=== PATIENT | female | born 1975 | race Caucasian/White ===

== ENCOUNTER 2020-08-13 09:34 | Outpatient (REF) | payer MEDICARE, MEDICAID, SELFPAY ==
[2020-08-13 14:34] LABS: Influenza A PCR NEGATIVE (Negative); Influenza B PCR NEGATIVE (Negative); Resp Syncy Virus RNA Qual PCR NEGATIVE (Negative); SARS COV2 PCR INHOUSE NEGATIVE (Negative)
== END 2020-08-13 09:35 | disposition home or self-care (01) ==
LOC: HO.LAB 09:34
PROVIDERS: Visit Provider Nurse Practitioner Family
DX: J40 Bronchitis, not specified as acute or chronic (principal)
CPT/HCPCS: 0241U

== ENCOUNTER → 2020-09-14 08:42 | Outpatient (BNVA) | payer MEDICARE, MEDICAID, SELFPAY | PROVIDERS: PCP Nurse Practitioner Family; Visit Provider Physician Assistant | DX: E66.9 Obesity, unspecified (principal); K91.2 Postsurgical malabsorption, not elsewhere classified; Z90.3 Acquired absence of stomach [part of]; Z98.84 Bariatric surgery status | CPT/HCPCS: Q3014 ==

== ENCOUNTER → 2020-09-19 14:06 | Outpatient (BNVA) | payer MEDICARE, MEDICAID, SELFPAY | PROVIDERS: PCP Nurse Practitioner Family; Visit Provider Physician Assistant | DX: Z76.89 Persons encountering health services in other specified circumstances (principal) ==

== ENCOUNTER 2020-10-02 09:40 | Outpatient (REF) | payer MEDICARE, MEDICAID, SELFPAY ==
[2020-10-02 10:41] LABS: MANUAL DIFF FLAG NO
[2020-10-02 10:46] LABS: Basophils Percent Auto 0.3 % (0-2); Eosinophils Absolute Auto 0.1 X10*3/uL (0.0-0.4); Eosinophils Percent Auto 1.9 % (0-4); Hematocrit 41.1 % (37-47); Hemoglobin 12.4 g/dl (12.0-16.0); Imm Gran Abs Auto 0.03 X10*3/uL (0.00-0.03); Imm Gran Pct Auto 0.4 % (0.0-0.4); Lymphocytes Percent Auto 26.5 % (20-40); Mean Corpuscular HGB Conc 30.2 g/dl (31.0-35.0); Mean Corpuscular Hemoglobin 24.8 pg (27.0-33.0); Mean Corpuscular Volume 82.2 fL (80-98); Mean Platelet Volume 10.4 fL (9.4-12.3); Monocytes Absolute Auto 0.4 X10*3/uL (0.1-1.2); Neutrophils Absolute Auto 4.9 X10*3/uL (2.0-8.3); Neutrophils Percent Auto 65.9 % (45-73); Platelet Count 329 X10*3/uL (160-400); Red Cell Distribution Width 15.9 % (11.0-16.0); White Blood Count 7.4 X10*3/uL (4.8-10.8)
[2020-10-02 11:13] LABS: Alanine Aminotransferase 13 U/L (0-31); Albumin Level 4.1 g/dL (3.5-5.0); Alkaline Phosphatase 113 U/L (39-117); Anion Gap 13 (12-20); Aspartate Amino Transferase 14 U/L (5-31); Bilirubin Total 0.2 mg/dL (0.0-1.0); Blood Urea Nitrogen 12 mg/dL (9-16); C Reactive Protein 0.36 mg/dL (< or = 0.50); Calcium 8.7 mg/dL (8.4-10.2); Carbon Dioxide 25 mmol/L (22-29); Chloride 109 mmol/L (96-108); Cholesterol 281 mg/dL; Estimated Glomerular Filt Rate > 60; Glucose Fasting 88 mg/dL (60-99); HDL Cholesterol 76 mg/dL; Iron 40 mcg/dL (30-160); LDL Cholesterol Calculated 179 mg/dl; Percent Iron Saturation 7 % (15-50); Potassium 4.5 mmol/l (3.3-5.1); Sodium 142 mmol/L (135-145); Total Iron Binding Capacity 534 mcg/dL (228-428); Total Protein 7.1 g/dL (6.5-8.0); Triglycerides 130 mg/dL; Unsaturated Iron Binding 494 ug/dL
[2020-10-02 11:16] LABS: Estimated Average Glucose 94 mg/dL; Hemoglobin A1c % 4.9 %
[2020-10-02 11:33] LABS: Vitamin D 25-OH Total 25.4 ng/mL (>30)
[2020-10-02 11:39] LABS: Ferritin 3 ng/mL (10-250); TSH reflex Free T4 0.72 mIU/mL (0.32-4.0)
[2020-10-02 11:46] LABS: Folate 16.1 ng/mL (> or = 4.0); Vitamin B12 551 pg/mL (200-900)
[2020-10-03 17:28] LABS: Calcium (PTHI) 9.2 mg/dL (8.6-10.2); PTHI 47 pg/mL (14-64)
[2020-10-04 21:58] LABS: Insulin Level Total 11.3 uIU/mL
[2020-10-05 06:56] LABS: Zinc 93 mcg/dL (60-130)
[2020-10-06 21:12] LABS: Vitamin A 50 mcg/dL (38-98)
[2020-10-07 10:23] LABS: Vitamin B1 11 nmol/L (8-30)
== END 2020-10-02 09:41 | disposition home or self-care (01) ==
LOC: HO.XRAY 09:40
PROVIDERS: PCP Nurse Practitioner Family; Visit Provider Physician Assistant
DX: E66.9 Obesity, unspecified (principal); K91.2 Postsurgical malabsorption, not elsewhere classified; Z90.3 Acquired absence of stomach [part of]; K21.9 Gastro-esophageal reflux disease without esophagitis; Z98.84 Bariatric surgery status
CPT/HCPCS: 36415; 80053; 80061; 82306; 82607; 82728; 82746; 83036; 83525; 83540; 83970; 84425; 84443; 84590; 84630; 85025; 86140

== ENCOUNTER 2020-10-25 10:03 | Outpatient (REF) | payer MEDICARE, MEDICAID, SELFPAY ==
--- NOTE | 2020-10-25 10:05 | FL_ITS ---
EXAMINATION: XR FLUOROSCOPY UPPER GI CLINICAL INFORMATION: Bariatric surgery status COMPARISON: None TECHNIQUE: Fluoroscopic assessment of the upper GI tract was performed in various upright and supine/prone obliquities utilizing thin density barium contrast material. FINDINGS: Normal oral bolus control and transfer. Normal posterior tilt of the epiglottis with elevation of the hyoid. The esophagus was normal in course, caliber, and contour. There was normal distensibility with no fixed segment of narrowing. No focal mucosal abnormality was identified. No significant esophageal dysmotility was observed. Contrast passed freely across the gastroesophageal junction into the stomach. No significant hiatal hernia. Status post gastric sleeve. Surgical clips along the greater curvature of the stomach. There was expected distensibility of the stomach with no focal abnormality identified. There was prompt gastric emptying into the duodenum which demonstrated a normal appearance. Mild gastroesophageal reflux was observed. FLUOROSCOPY TIME: 1.7 minutes DOSE AREA PRODUCT: 24.976 Gy-cm2 (pompa-centimeter squared) FL/FL upper GI series IMPRESSION: Status post sleeve gastrectomy with typical appearance. No abnormal distensibility. No hernia. Mild gastroesophageal reflux noted.
== END 2020-10-25 10:04 | disposition home or self-care (01) ==
LOC: HO.XRAY 10:03
PROVIDERS: Visit Provider Physician Assistant
DX: K21.9 Gastro-esophageal reflux disease without esophagitis (principal); Z98.84 Bariatric surgery status
CPT/HCPCS: 74240

== ENCOUNTER → 2020-10-26 08:36 | Outpatient (BNVA) | payer MEDICARE, MEDICAID, SELFPAY | PROVIDERS: PCP Nurse Practitioner Family; Visit Provider Physician Assistant ==

== ENCOUNTER → 2020-10-30 07:42 | Outpatient (BNVA) | payer MEDICARE, MEDICAID, SELFPAY | PROVIDERS: PCP Nurse Practitioner Family; Visit Provider Physician Assistant | DX: E66.9 Obesity, unspecified (principal); K91.2 Postsurgical malabsorption, not elsewhere classified; Z90.3 Acquired absence of stomach [part of]; Z98.84 Bariatric surgery status | CPT/HCPCS: Q3014 ==

== ENCOUNTER → 2020-11-20 15:22 | Outpatient (BNVA) | payer MEDICARE, MEDICAID, SELFPAY | PROVIDERS: PCP Nurse Practitioner Family; Visit Provider Dietitian, Registered ==

== ENCOUNTER 2021-04-25 06:49 | Outpatient (REF) | payer MEDICARE, MEDICAID, SELFPAY ==
--- NOTE | 2021-04-25 | EEG_ITS ---
This is a 16-channel EEG with an EKG lead. The patient is reported awake and drowsy during the tracing. Background EEG rhythm is 12 to 14 hertz, 5 to 30 microvolt posteriorly, lower amplitude fast anteriorly. Photic stimulation does not produce any driving. Hyperventilation is not performed. Cardiac lead does not reveal any significant abnormality. The patient transitioned in and out of drowsiness with no significant abnormality. No definite sharp wave spikes or paroxysmal tendency noted. IMPRESSION: No significant abnormality noted on this EEG. If seizure disorder is strongly suspected, ambulatory EEG for 2 to 3 days is recommended. MD JOHANN Cabral/RADAMES / [id number]
== END 2021-04-25 06:50 | disposition home or self-care (01) ==
LOC: HO.NEURO 06:49
PROVIDERS: PCP Nurse Practitioner Family; Visit Provider Nurse Practitioner Family
DX: R55 Syncope and collapse (principal)
CPT/HCPCS: 95819

== ENCOUNTER 2021-06-24 11:13 | Outpatient (REF) | payer MEDICARE, MEDICAID, SELFPAY ==
--- NOTE | ~2021-06-24 | MM_ITS ---
EXAMINATION: MM SCREENING DIGITAL BREAST TOMOSYNTHESIS, BILATERAL CLINICAL INFORMATION: Screening. Asymptomatic. Benign left ultrasound guided biopsy 09/12/2011 (fibroadenoma). The lifetime risk of breast cancer based on the Tyrer-Cuzick Model is 13%. COMPARISON: Mammography: 05/03/2018, 06/16/2016 TECHNIQUE: Digital breast tomosynthesis is performed in both the craniocaudal and mediolateral oblique views along with computer-aided detection (CAD). Synthesized 2D images are generated from the tomosynthesis. FINDINGS: The breasts are heterogeneously dense, which may obscure small masses (ACR BI-RADS breast composition Category c). There are no significant masses, abnormal calcifications, or other abnormalities. Parenchymal pattern is similar to prior studies. There is a biopsy clip marker mid 2:30 o'clock left breast with stable adjacent circumscribed nodule consistent with a fibroadenoma on prior sampling. There are stable benign-appearing dermal calcifications anterior 6:30 o'clock position left breast. MM/MM tomosynthesis screening BI IMPRESSION: No mammographic evidence of malignancy. ASSESSMENT: BI-RADS 2: Benign RECOMMENDATION: Routine annual mammography screening. This patient's information was entered into a reminder system with a target due date for their next mammogram.
== END 2021-06-24 11:14 | disposition home or self-care (01) ==
LOC: HO.MAMMO 11:13
PROVIDERS: Visit Provider Nurse Practitioner Family
DX: Z12.31 Encounter for screening mammogram for malignant neoplasm of breast (principal)
CPT/HCPCS: 77063; 77067

== ENCOUNTER → 2021-10-28 08:03 | Outpatient (BNVA) | payer MEDICARE, MEDICAID, SELFPAY | PROVIDERS: PCP Nurse Practitioner Family; Visit Provider Physician Assistant Surgical | DX: E66.9 Obesity, unspecified (principal); K91.2 Postsurgical malabsorption, not elsewhere classified; Z90.3 Acquired absence of stomach [part of]; Z98.84 Bariatric surgery status; Z68.35 Body mass index [BMI] 35.0-35.9, adult | CPT/HCPCS: Q3014 ==

== ENCOUNTER → 2022-01-28 15:52 | Outpatient (BNVA) | payer MEDICARE, MEDICAID, SELFPAY | PROVIDERS: PCP Nurse Practitioner Family; Referring Provider Nurse Practitioner Family; Visit Provider Physician Assistant Surgical | DX: E66.9 Obesity, unspecified (principal); Z68.35 Body mass index [BMI] 35.0-35.9, adult | CPT/HCPCS: 99212 ==

== ENCOUNTER 2022-01-30 10:57 | Outpatient (REF) | payer MEDICARE, MEDICAID, SELFPAY ==
--- NOTE | ~2022-01-30 | XR_ITS ---
EXAMINATION: XR CHEST CLINICAL INFORMATION: QuantiFERON gold positive COMPARISON: None TECHNIQUE: 2 views of the chest were obtained. FINDINGS: No significant abnormality is noted involving the heart, lungs, mediastinum, bony thorax or soft tissues. XR/XR chest 2V IMPRESSION: Unremarkable chest examination.
[2022-01-30 12:02] LABS: MANUAL DIFF FLAG NO
[2022-01-30 12:25] LABS: Basophils Percent Auto 0.4 % (0-2); Eosinophils Absolute Auto 0.1 X10*3/uL (0.0-0.4); Eosinophils Percent Auto 1.2 % (0-4); Hematocrit 40.4 % (37.0-47.0); Hemoglobin 12.6 g/dl (12.0-16.0); Imm Gran Abs Auto 0.03 X10*3/uL (0.00-0.03); Imm Gran Pct Auto 0.4 % (0.0-0.4); Lymphocytes Percent Auto 27.4 % (20-40); Mean Corpuscular HGB Conc 31.2 g/dl (31.0-35.0); Mean Corpuscular Hemoglobin 25.7 pg (27.0-33.0); Mean Corpuscular Volume 82.3 fL (80.0-98.0); Mean Platelet Volume 9.7 fL (9.4-12.3); Monocytes Absolute Auto 0.4 X10*3/uL (0.1-1.2); Monocytes Percent Auto 5.7 % (2-11); Neutrophils Absolute Auto 4.7 x10*3/uL (2.0-8.3); Neutrophils Percent Auto 64.9 % (45-73); Platelet Count 333 X10*3/uL (160-400); Red Blood Count 4.91 X10*6/uL (4.20-5.50); Red Cell Distribution Width 13.4 % (11.0-16.0); White Blood Count 7.2 X10*3/uL (4.8-10.8)
[2022-01-30 12:38] LABS: Estimated Average Glucose 105 mg/dL; Hemoglobin A1c % 5.3 %
[2022-01-30 12:51] LABS: HDL Cholesterol 63 mg/dL; Iron 56 mcg/dL (30-160); Percent Iron Saturation 11 % (15-50); Total Iron Binding Capacity 492 mcg/dL (228-428); Unsaturated Iron Binding 436 ug/dL
[2022-01-30 12:54] LABS: Alanine Aminotransferase 19 U/L (0-31); Alkaline Phosphatase 126 U/L (39-117); Anion Gap 12 (12-20); Aspartate Amino Transferase 23 U/L (5-31); Bilirubin Total 0.4 mg/dL (0.0-1.0); Blood Urea Nitrogen 9 mg/dL (9-16); Calcium 9.6 mg/dL (8.4-10.2); Carbon Dioxide 28 mmol/L (22-29); Chloride 104 mmol/L (96-108); Estimated Glomerular Filt Rate > 60; Glucose Random 90 mg/dL (60-115); Potassium 4.4 mmol/L (3.3-5.1); Sodium 140 mmol/L (135-145); Total Protein 6.9 g/dL (6.5-8.0)
[2022-01-30 13:13] LABS: Ferritin 12 ng/mL (10-250); Vitamin D 25-OH Total 29.3 ng/mL (>30)
[2022-01-30 13:28] LABS: Folate 14.6 ng/mL (> or = 4.0); Vitamin B12 479 pg/mL (200-900)
[2022-01-30 14:59] LABS: C Reactive Protein 0.46 mg/dL (< or = 0.50); Cholesterol 236 mg/dL; LDL Cholesterol Calculated 147 mg/dl; Triglycerides 134 mg/dL
[2022-02-04 06:27] LABS: Zinc 79 mcg/dL (60-130)
[2022-02-04 16:37] LABS: Vitamin B1 9 nmol/L (8-30)
[2022-02-04 19:01] LABS: Vitamin A 36 mcg/dL (38-98)
== END 2022-01-30 10:58 | disposition home or self-care (01) ==
LOC: HO.LAB 10:57
PROVIDERS: Absent Provider Nurse Practitioner Primary Care; PCP Nurse Practitioner Family; Referring Provider Registered Nurse; Visit Provider Physician Assistant Surgical
DX: R76.12 Nonspecific reaction to cell mediated immunity measurement of gamma interferon antigen response without active tuberculosis (principal); K91.2 Postsurgical malabsorption, not elsewhere classified; E66.9 Obesity, unspecified; Z90.3 Acquired absence of stomach [part of]; Z98.84 Bariatric surgery status
CPT/HCPCS: 36415; 71046; 80053; 80061; 82306; 82607; 82728; 82746; 83036; 83540; 84425; 84443; 84590; 84630; 85025; 86140

== ENCOUNTER 2022-06-26 10:17 | Outpatient (REF) | payer MEDICARE, MEDICAID, SELFPAY ==
--- NOTE | ~2022-06-26 | MM_ITS ---
EXAMINATION: MM SCREENING DIGITAL BREAST TOMOSYNTHESIS, BILATERAL CLINICAL INFORMATION: Screening. Asymptomatic. Benign left biopsy 2010, fibroadenoma. The lifetime risk of breast cancer based on the Tyrer-Cuzick Model is 12%. COMPARISON: Mammography: 06/24/2021, 05/03/2018 TECHNIQUE: Digital breast tomosynthesis is performed in both the craniocaudal and mediolateral oblique views along with computer-aided detection (CAD). Synthesized 2D images are generated from the tomosynthesis. FINDINGS: The breasts are heterogeneously dense, which may obscure small masses (ACR BI-RADS breast composition Category c). There are no significant masses, abnormal calcifications, or other abnormalities. Parenchymal pattern is similar to prior studies. There is no developing density or architectural abnormality. There is biopsy clip marker mid upper outer left breast with smaller adjacent nodule consistent with the fibroadenoma. The axilla and skin contours are unremarkable. No significant changes. MM/MM tomosynthesis screening BI IMPRESSION: No mammographic evidence of malignancy. ASSESSMENT: BI-RADS 2: Benign RECOMMENDATION: Routine annual mammography screening. This patient's information was entered into a reminder system with a target due date for their next mammogram.
== END 2022-06-26 10:18 | disposition home or self-care (01) ==
LOC: HO.MAMMO 10:17
PROVIDERS: PCP Registered Nurse; Visit Provider Registered Nurse
DX: Z12.31 Encounter for screening mammogram for malignant neoplasm of breast (principal)
CPT/HCPCS: 77063; 77067

== ENCOUNTER → 2022-08-06 10:20 | Outpatient (BNVA) | payer MEDICARE, MEDICAID, SELFPAY | PROVIDERS: PCP Registered Nurse; Visit Provider Physician Assistant Surgical | DX: E66.9 Obesity, unspecified (principal); K21.9 Gastro-esophageal reflux disease without esophagitis; Z98.84 Bariatric surgery status; Z68.36 Body mass index [BMI] 36.0-36.9, adult | CPT/HCPCS: 99212 ==

== ENCOUNTER 2022-10-06 10:01 | Outpatient (REF) | payer MEDICARE, MEDICAID, SELFPAY | END 2022-10-06 10:02 | disposition home or self-care (01) | LOC: HO.XRAY 10:01 | PROVIDERS: PCP Registered Nurse; Visit Provider Physician Assistant Surgical | DX: Z13.89 Encounter for screening for other disorder (principal) ==

== ENCOUNTER 2022-11-11 09:45 | Outpatient (REF) | payer MEDICARE, MEDICAID, SELFPAY ==
--- NOTE | ~2022-11-11 | FL_ITS ---
EXAMINATION: XR FLUOROSCOPY UPPER GI WITH AIR CLINICAL INFORMATION: Bariatric surgery status COMPARISON: Previous exam September 2020 TECHNIQUE: Upper GI was performed using thin and thick barium and effervescent granules. FINDINGS: Esophageal motility is normal. There is significant gastroesophageal reflux. No hernia. There are surgical john seen adjacent to the stomach following gastric sleeve procedure. No mass, ulcer, stricture or fold thickening is seen. FLUOROSCOPY TIME: 0.6 minutes DOSE AREA PRODUCT: 4.4 pompa per centimeter squared. 28 saved fluoroscopic images. FL/FL upper GI w air IMPRESSION: Significant gastroesophageal reflux. Postoperative change from gastric sleeve procedure.
== END 2022-11-11 09:46 | disposition home or self-care (01) ==
LOC: HO.XRAY 09:45
PROVIDERS: PCP Registered Nurse; Visit Provider Physician Assistant Surgical
DX: K21.9 Gastro-esophageal reflux disease without esophagitis (principal); Z98.84 Bariatric surgery status
CPT/HCPCS: 74246

== ENCOUNTER → 2022-12-10 14:27 | Outpatient (BNVA) | payer MEDICARE, MEDICAID, SELFPAY | PROVIDERS: PCP Registered Nurse; Visit Provider Physician Assistant Surgical | DX: K21.9 Gastro-esophageal reflux disease without esophagitis (principal); E66.9 Obesity, unspecified; Z68.39 Body mass index [BMI] 39.0-39.9, adult; Z90.3 Acquired absence of stomach [part of]; Z90.49 Acquired absence of other specified parts of digestive tract | CPT/HCPCS: 99212 ==

== ENCOUNTER → 2022-12-25 13:21 | Outpatient (BNVA) | payer MEDICARE, MEDICAID, SELFPAY | PROVIDERS: PCP Family Medicine; Visit Provider Physician Assistant ==

== ENCOUNTER 2022-12-26 06:32 | Day surgery (SDC) | payer MEDICARE, MEDICAID, SELFPAY ==
--- NOTE | 2022-12-19 19:22 | MHC.SHP ---
Pre-Procedural Eval Section A Date of Service: 12/19/22 The patient is an INPATIENT: No The History & Physical has been completed within 30 days and I have reviewed it.: Yes Section B Chief Complaint: reflux disease Relevant Family History (Specify if Yes): No Relevant Social History: None Present Medications: None Medical History: No relevant PMH History of Previous Operations: Relevant previous surgery/procedure and date(s) (sleeve gastrectomy) Allergies: Allergies Allergy/AdvReac Type Severity Reaction Status Date / Time No Known Allergies Allergy Verified 12/10/22 14:32 [No Known Allergies*] Pt states no food/medication Allergy Unknown Anxiety Uncoded 01/28/22 15:58 a Review of Systems Sugical H&P ROS: Negative: Constitution, Cardiovascular, Respiratory, Neurological, Psychiatric, Hem-Onc, Allergic/Immunologic, Gastrointestinal, Genitourinary, Musculoskeletal, Integumentary, Endocrine and Eyes/Ears/Nose/Throat Exam Surgical H&P Exam: Normal: HEENT, Normal: Heart, Normal: Lungs, Normal: Extremities, Normal: Abdomen, Normal: Skin and Normal: Neurological Plan Diagnosis/Plan: Unchanged (EGD to assess for esphagitis. Inability to stop PPIs for H pylori test. Risks for perforation and bleeding were discussed with patient. She is in agreement with the plan) I have reviewed the history and physical and performed a pertinent physical examination on my patient. No changes have occurred unless specified. Time Spent With Patient Time: Total time managing care of this patient today ____ minutes.
[2022-12-23 09:13] VITALS: BMI 39.9
--- NOTE | 2022-12-25 12:27 | P.CONAN_ITS ---
Documented by User: Berenice Peters NP 12/25/22 12:28 HPI - Anesthesia Eval Consult details Narrative: 47yo F for Upper Endoscopy s/p sleeve 2017 [facility] Active Problems Active Problems: All Active Problems (Updated 12/23/22 @ 09:09 by Matilda Adams RN) Pharyngitis (Acute) Bronchitis (Acute) Sore throat (Acute) GERD (gastroesophageal reflux disease) (Acute) S/P laparoscopic sleeve gastrectomy (Acute) Intestinal malabsorption following gastrectomy (Acute) Obesity (BMI 30-39.9) (Acute) Past Medical History Medical History (Updated 12/23/22 @ 09:09 by Matilda Adams RN) Elevated cholesterol GERD (gastroesophageal reflux disease) Hx of uterine prolapse Intestinal malabsorption following gastrectomy Obesity (BMI 30-39.9) Rectocele Family History Family History Father Heart disease Hypertension Mother Hypertension Heart disease Diabetes mellitus Heart attack Brother Diabetes mellitus Acute depression Anxiety Son Diabetes mellitus Hypertension Son No problems noted. Daughter No problems noted. Sister No problems noted. Surgical History Surgical History History of abdominoplasty History of bladder suspension procedure History of cholecystectomy History of sleeve gastrectomy Hx of abdominoplasty Hx of appendectomy Hx of section Hx of colonoscopy Hx of decompression of ulnar nerve Hx of tubal ligation S/P laparoscopic sleeve gastrectomy Social History Social History Alcohol intake: never Patient Tobacco Use Status: Former Tobacco user Use of substances other than those prescribed or required for medical reasons: No Are you DNR?: No Advance Directives: No Advance Directives Information Provided: Yes Recently lost weight without trying: No Nutrition Risks: No Nutritional Risk Meds Allergies Allergy/AdvReac Type Severity Reaction Status Date / Time No Known Allergies Allergy Verified 12/10/22 14:32 [No Known Allergies*] Home Medications Medication Instructions Recorded Confirmed Last Taken Type albuterol sulfate 90 mcg/actuation 2 puff PO Q4H PRN Wheezing 08/13/20 12/23/22 Unknown History aerosol inhaler clonazepam 0.5 mg tablet 0.5 mg PO BID PRN Anxiety 08/13/20 12/23/22 Unknown History cyclobenzaprine 5 mg tablet 5 mg PO TID PRN muscle pain 08/13/20 12/23/22 Unknown History ibuprofen 800 mg tablet 800 mg PO DAILY PRN pain 08/13/20 12/23/22 Unknown History loratadine 10 mg tablet 10 mg PO DAILY PRN Allergy Symptoms 08/13/20 12/23/22 Unknown History naratriptan 2.5 mg tablet 2.5 mg PO DAILY PRN migraine 08/13/20 12/23/22 Unknown History ondansetron 4 mg disintegrating 4 mg PO Q6H PRN Nausea 08/13/20 12/23/22 Unknown History tablet gabapentin 100 mg capsule 100 mg PO TID 01/28/22 12/23/22 Unknown History ascorbate calcium (vitamin C) 500 500 mg PO DAILY 08/06/22 12/23/22 Unknown History mg tablet atorvastatin 10 mg tablet 40 mg PO DAILY 08/06/22 12/23/22 Unknown History Exam Exam Date and Time: December 25, 2022 1227 Height,Weight and Vital Signs: Height 5 ft 0.5 in Weight 94.256 kg Assessment and Plan Assessment Anesthesia Assessment: Chart Reviewed Documented by User: Agnieszka Quezada MD 12/26/22 08:06 [facility] Past Medical History Medical History (Updated 12/23/22 @ 09:09 by Matilda Adams RN) Elevated cholesterol GERD (gastroesophageal reflux disease) Hx of uterine prolapse Intestinal malabsorption following gastrectomy Obesity (BMI 30-39.9) Rectocele Family History Family History Father Heart disease Hypertension Mother Hypertension Heart disease Diabetes mellitus Heart attack Brother Diabetes mellitus Acute depression Anxiety Son Diabetes mellitus Hypertension Son No problems noted. Daughter No problems noted. Sister No problems noted. Family history of problems with anesthesia: No Surgical History Surgical History History of abdominoplasty History of bladder suspension procedure History of cholecystectomy History of sleeve gastrectomy Hx of abdominoplasty Hx of appendectomy Hx of section Hx of colonoscopy Hx of decompression of ulnar nerve Hx of tubal ligation S/P laparoscopic sleeve gastrectomy History of Problems with Anesthesia: Yes (ponv) Social History Social History Alcohol intake: never Patient Tobacco Use Status: Former Tobacco user Use of substances other than those prescribed or required for medical reasons: No Are you DNR?: No Advance Directives: No Advance Directives Information Provided: Yes Recently lost weight without trying: No Nutrition Risks: No Nutritional Risk Meds Allergies Allergy/AdvReac Type Severity Reaction Status Date / Time No Known Allergies Allergy Verified 12/10/22 14:32 [No Known Allergies*] Home Medications Medication Instructions Recorded Confirmed Last Taken Type albuterol sulfate 90 mcg/actuation 2 puff PO Q4H PRN Wheezing 08/13/20 12/23/22 Unknown History aerosol inhaler clonazepam 0.5 mg tablet 0.5 mg PO BID PRN Anxiety 08/13/20 12/23/22 Unknown History cyclobenzaprine 5 mg tablet 5 mg PO TID PRN muscle pain 08/13/20 12/23/22 Unknown History ibuprofen 800 mg tablet 800 mg PO DAILY PRN pain 08/13/20 12/23/22 Unknown History loratadine 10 mg tablet 10 mg PO DAILY PRN Allergy Symptoms 08/13/20 12/23/22 Unknown History naratriptan 2.5 mg tablet 2.5 mg PO DAILY PRN migraine 08/13/20 12/23/22 Unknown History ondansetron 4 mg disintegrating 4 mg PO Q6H PRN Nausea 08/13/20 12/23/22 Unknown History tablet gabapentin 100 mg capsule 100 mg PO TID 01/28/22 12/23/22 Unknown History ascorbate calcium (vitamin C) 500 500 mg PO DAILY 08/06/22 12/23/22 Unknown History mg tablet atorvastatin 10 mg tablet 40 mg PO DAILY 08/06/22 12/23/22 Unknown History Exam Airway Mallampati Class: II TM Dist: >3cm Neck ROM: Full Heart: rr Lungs: cta Assessment and Plan Final Anesthetic Review Family History of Problems with Anesthesia: No History of Problems with Anesthesia: Yes (ponv) NPO: Yes ASA Class: III (obesity) Final Preanesthetic Review: No Changes in Pt Med Stat, Meds/Allgs Chart Reviewed and Consent Obtained/Reviewed Patient Risk: Low Procedure Risk: Low Anesthetic Plan Anesthetic Plan: MAC: Disposition: Standard PACU
[2022-12-25 13:37] LABS: COVID-19 Test Negative (Negative); IDNOW Serial# 55D5AD1C
[2022-12-26 06:38] VITALS: BMI 40.0
[2022-12-26 06:43] VITALS: BP 115/78; PULSE 83; RESP 16; TEMP 36.3; O2SAT 97
[2022-12-26] MEDS: Lactated Ringers 1,000 ML 80 ML IVCONT (07:01)
--- NOTE | 2022-12-26 07:34 | PM.OP ---
Brief Operative Note Date of Service: 12/26/22 Pre-op diagnosis: GERD, s/p sleeve gastrectomy Post-op diagnosis: same Procedure: PROCEDURE DATE: 12/26/2022 PREOPERATIVE DIAGNOSIS: GERD, s/p sleeve gastrectomy POSTOPERATIVE DIAGNOSIS: ?Same as above PROCEDURE: [id number] with biopsies Surgeon: ?Silver Perez M.D.. Ph.D. Oracle Database Administrator: None ? Anesthesia: IV sedation Estimated blood loss: ?Minimal FINDINGS AND PROCEDURE: ? OPERATIVE INDICATIONS: ?The patient is a 47 year old female known to me who underwent a laparoscopic sleeve gastrectomy by me. The patient had some weight loss originally but has gained all the weight back and additional even above to where she started with.? The patient was doing very well but has recently been complaining of GERD. Based on this information I recommended an upper endoscopy to evaluate the patient's symptoms. Risks and complications of the surgery were discussed with the patient in advance particularly the possibility of perforation or bleeding that may require surgical intervention. The patient understood the risks and was in agreement with the plan. ? PROCEDURE: After informed consent was obtained by the patient, the patient was ?transferred to the Operating Room and was placed in the supine position.? After successful induction of IV sedation, a mouth block was inserted and the patient was placed in the left lateral decubitus position. An upper endoscopy was performed next, the oropharynx and esophagus appeared within the normal limits. There was no hiatal hernia. The z-line was smooth. Two biopsies were obtained from the distal esohagus 2-3 cm proximal to the GE junction and two additional biopsies from the GE junction. The sleeve was entered and it appeared to be of normal size. There was mild gastritis at distal antrum. There was no stricture or ulcer. Biopsies were obtained from the proximal sleeve as well as the distal antrum. No significant bleeding was noted from any of the biopsy sites. The scope was then advanced into the duodenum which appeared to be normal as well. At that point the duodenum ?and the sleeve were decompressed and the scope was withdrawn from the patient's mouth. The patient extubated and was transferred in stable condition to the Recovery Room for further care. I was present and performed all steps of the procedure. There were no residents to assist with this case. Silver Perez M.D., Ph.D. Surgeon: Tyler Perez MD Anesthesia: MAC Was an Oracle Database Administrator used for this Procedure?: No Estimated blood loss (mL): 0 IV fluids (mL): 400 Urine output (mL): 0 (No Joseph to record output) Pathology: other (1) antrum x1, 2) proximal sleeve/gastric fundus x1, 3) EGJ x2, 4) distal esophagus x2) Condition: stable Disposition: PACU
[2022-12-26 08:02] VITALS: BP 113/75; PULSE 99; RESP 16; TEMP 36.2; O2SAT 96
[2022-12-26 08:18] VITALS: BP 110/73; PULSE 82; RESP 16; O2SAT 97
[2022-12-26 08:31] VITALS: BP 110/73; PULSE 83; RESP 16; TEMP 36.3; O2SAT 97
== END 2022-12-26 09:02 | disposition home or self-care (01) ==
PROVIDERS: Physician Assistant Surgical; PCP Family Medicine; Visit Provider Surgery
PROC: 0DJ08ZZ Inspection of Upper Intestinal Tract, Via Natural or Artificial Opening Endoscopic (ICD-10-PCS; CPT 43235; principal; 2022-12-26 07:30)
DX: K21.9 Gastro-esophageal reflux disease without esophagitis (principal); Z98.84 Bariatric surgery status; Z90.3 Acquired absence of stomach [part of]; K29.60 Other gastritis without bleeding; E66.9 Obesity, unspecified; Z68.39 Body mass index [BMI] 39.0-39.9, adult; Z79.899 Other long term (current) drug therapy; Z79.1 Long term (current) use of non-steroidal anti-inflammatories (NSAID); Z90.49 Acquired absence of other specified parts of digestive tract; Z20.822 Contact with and (suspected) exposure to COVID-19
CPT/HCPCS: 43239; 87635; 88305; 88342

== ENCOUNTER → 2022-12-29 09:48 | Outpatient (BNVA) | payer MEDICARE, MEDICAID, SELFPAY | PROVIDERS: PCP Registered Nurse; Visit Provider Physician Assistant Surgical | DX: K21.9 Gastro-esophageal reflux disease without esophagitis (principal); E78.00 Pure hypercholesterolemia, unspecified; K90.49 Malabsorption due to intolerance, not elsewhere classified; Z90.3 Acquired absence of stomach [part of] | CPT/HCPCS: 99212 ==

== ENCOUNTER 2022-12-31 11:26 | Emergency (ER) | payer MEDICARE, MEDICAID, SELFPAY ==
--- NOTE | ~2022-12-31 | CT_ITS ---
CT TEMPORAL BONE WITHOUT CONTRAST INDICATION: Right mastoid tenderness. COMPARISON: None available. TECHNIQUE: Multidetector CT acquisitions of the temporal bones obtained without IV contrast. This CT examination was performed using dose optimization techniques as appropriate, variously including the following: *Automated exposure control *Adjustment of mA and/or kV according to patient size (this includes techniques or standardized protocols for targeted exams where dose is matched to indication/reason for exam; i.e. extremities or head) *Use of iterative reconstruction technique FINDINGS: Soft tissue thickening of the right cartilaginous external auditory canal with mild adjacent cellulitis, findings most suggestive of otitis externa. There is no drainable fluid collection to suggest abscess. Mild nonspecific partial opacification of the right epitympanum anteriorly as well as mild soft tissue within Prussak's space without associated bone erosion. The remainder of the right middle ear cavity is clear and the right mastoid air cells are clear. Left mastoid air cells and left middle ear cavity are clear. The inner ear structures are unremarkable. The paranasal sinuses remain well-aerated. No suspicious intraosseous lesions. The TMJs are unremarkable. CT/CT mastoid IMPRESSION: Soft tissue thickening of the right cartilaginous external auditory canal with mild adjacent cellulitis, findings most suggestive of otitis externa. There is no drainable fluid collection to suggest abscess. Mild nonspecific partial opacification of the right epitympanum anteriorly as well as mild soft tissue within Prussak's space without associated bone erosion. The remainder of the right middle ear cavity is clear and the right mastoid air cells are clear.
[2022-12-31 11:46] VITALS: BP 135/83; PULSE 94; RESP 18; TEMP 37; O2SAT 98; BMI 40.0
--- NOTE | 2022-12-31 11:49 | ED_ITS ---
HPI - Ear Problem General Chief complaint: Ear Problems <MALCOLM Mauricio - Last Filed: 12/31/22 11:51> Stated complaint: R outer ear infection? <MALCOLM Mauricio - Last Filed: 12/31/22 11:51> Time Seen by Provider: 12/31/22 13:20 <MALCOLM Mauricio - Last Filed: 12/31/22 11:51> Source: patient <MALCOLM Vences Last Filed: 12/31/22 15:02> Mode of arrival: ambulatory <MALCOLM Vences Last Filed: 12/31/22 15:02> Limitations: no limitations <MALCOLM Vences Last Filed: 12/31/22 15:02> History of Present Illness HPI Narrative: Patient is a 47 year old assigned female at presenting to the emergency department today with right outer ear pain. Patient states that she had itching in her ear which she tried to fix with hydrogen peroxide, olive oil, and itching, then she began having ear pain on Thursday (12/27/22) and was pre scribed ear drops and Augmentin by her PCP but is not having any improvement in symptoms. Patient denies any dizziness, lightheadedness, abdominal pain, nausea, vomiting, fever, chills, blurry vision, double vision, loss of vision, chest pain, difficulty breathing, shortness of breath, back pain, night sweats, pain with urination, increased urinary frequency, increased urinary urgency, blood in her urine or stool, syncope or a near syncopal episode, recent trauma or falls, bowel incontinence, bladder incontinence, bowel retention, bladder retention, or any other complaints at this time. <MALCOLM Vences Last Filed: 12/31/22 15:02> MD Complaint: ear pain <MALCOLM Vences Last Filed: 12/31/22 15:02> Location: right ear <MALCOLM Vences Last Filed: 12/31/22 15:02> Duration: constant <MALCOLM Vences Last Filed: 12/31/22 15:02> Relieving factors: nothing <MALCOLM Vences Last Filed: 12/31/22 15:02> Exacerbating factors: nothing <MLACOLM Vences Last Filed: 12/31/22 15:02> Discharge from ear: no <MALCOLM Vences - Last Filed: 12/31/22 15:02> Treatment prior to arrival: eardrops and other (augmentin) <MALCOLM Vences - Last Filed: 02/17 15:02> Related Data Home medications: Home Medications Medication Instructions Recorded Confirmed albuterol sulfate 90 mcg/actuation 2 puff PO Q4H PRN Wheezing 08/13/20 12/29/22 aerosol inhaler clonazepam 0.5 mg tablet 0.5 mg PO BID PRN Anxiety 08/13/20 12/29/22 cyclobenzaprine 5 mg tablet 5 mg PO TID PRN muscle pain 08/13/20 12/29/22 ibuprofen 800 mg tablet 800 mg PO DAILY PRN pain 08/13/20 12/29/22 loratadine 10 mg tablet 10 mg PO DAILY PRN Allergy Symptoms 08/13/20 12/29/22 naratriptan 2.5 mg tablet 2.5 mg PO DAILY PRN migraine 08/13/20 12/29/22 ondansetron 4 mg disintegrating 4 mg PO Q6H PRN Nausea 08/13/20 12/29/22 tablet gabapentin 100 mg capsule 100 mg PO TID 01/28/22 12/29/22 ascorbate calcium (vitamin C) 500 500 mg PO DAILY 08/06/22 12/29/22 mg tablet atorvastatin 10 mg tablet 40 mg PO DAILY 08/06/22 12/29/22 Previous Rx's Medication Instructions Recorded vitamin A palmitate 3,000 mcg 10,000 unit PO DAILY #30 caps 02/05/22 (10,000 unit) capsule pantoprazole 40 mg tablet,delayed 40 mg PO BID #180 tabs 12/10/22 release sucralfate 100 mg/mL oral 10 ml PO BID #414 mL 12/29/22 suspension cephalexin 500 mg capsule 500 mg PO Q6H 7 days #28 caps 12/31/22 doxycycline hyclate 100 mg tablet 100 mg PO BID 7 days #14 tabs 12/31/22 naproxen 500 mg tablet 500 mg PO BID 7 days #14 tabs 12/31/22 <MALCOLM Mauricio - Last Filed: 12/31/22 11:51> Allergies/adverse reactions: Allergies Allergy/AdvReac Type Severity Reaction Status Date / Time No Known Allergies Allergy Verified 12/10/22 14:32 [No Known Allergies*] <MALCOLM Mauricio - Last Filed: 12/31/22 11:51> Review of Systems Constitutional: Constitutional: Reports no additional constitutional complaints, Denies chills, Denies fever(s) and Denies night sweats <MALCOLM Vences - Last Filed: 12/31/22 15:02> Eyes: Eyes: Reports no additional eye complaints, Denies blurry vision, Denies change in vision, Denies diplopia, Denies eye discharge, Denies loss of vision and Denies eye pain <MALCOLM Vences - Last Filed: 12/31/22 15:02> ENT: Denies dizziness <MALCOLM Vences - Last Filed: 12/31/22 15:02> Comments: right ear pain <MALCOLM Vences - Last Filed: 12/31/22 15:02> Cardiovascular: Cardiovascular: Reports no additional cardiovascular complaints, Denies chest pain, Denies lightheadedness, Denies Loss of Consciousness and Denies dyspnea <MALCOLM Vences - Last Filed: 12/31/22 15:02> Respiratory: Respiratory: Reports no additional respiratory complaints and Denies dyspnea <MALCOLM Vences - Last Filed: 12/31/22 15:02> Gastrointestinal: Gastrointestinal: Reports no additional gastrointestinal complaints, Denies abdominal pain, Denies melena, Denies hematochezia, Denies change in bowel habits and Denies change in stool character <MALCOLM Vences Last Filed: 12/31/22 15:02> Genitourinary: Genitourinary: Denies hematuria, Denies urinary frequency, Denies dysuria, Denies urinary incontinence, Denies urinary hesitancy and Denies urinary urgency <MALCOLM Vences Last Filed: 12/31/22 15:02> Musculoskeletal: Musculoskeletal: Reports no additional musculoskeletal complaints, Denies numbness and Denies tingling <MALCOLM Vences Last Filed: 12/31/22 15:02> Neurologic: Denies dizziness, Denies loss of vision, Denies numbness and Denies tingling <MALCOLM Vences - Last Filed: 12/31/22 15:02> Psychiatric: Psychiatric: Reports no additional psychiatric complaints <MALCOLM Vences - Last Filed: 12/31/22 15:02> Endocrine: Endocrine: Reports no additional endocrine complaints <MALCOLM Vences - Last Filed: 12/31/22 15:02> Hematologic/Lymphatic: Hematologic/Lymphatic: Reports no additional hematologic/lymphatic complaints <MALCOLM Vences - Last Filed: 12/31/22 15:02> Allergic/Immunologic: Allergic/Immunologic: Reports no additional allergic/immunologic complaints <MALCOLM Vences - Last Filed: 12/31/22 15:02> PMFSH Past Medical History Attestation statement: The following information was validated with the patient. <MALCOLM Vences - Last Filed: 12/31/22 15:02> Source: old records reviewed and nursing notes reviewed <MALCOLM Vences - Last Filed: 12/31/22 15:02> Medical History: Medical History Elevated cholesterol GERD (gastroesophageal reflux disease) Hx of uterine prolapse Intestinal malabsorption following gastrectomy Obesity (BMI 30-39.9) Rectocele <MALCOLM Mauricio - Last Filed: 12/31/22 11:51> Surgical History: Surgical History History of abdominoplasty History of bladder suspension procedure History of cholecystectomy History of sleeve gastrectomy Hx of abdominoplasty Hx of appendectomy Hx of section Hx of colonoscopy Hx of decompression of ulnar nerve Hx of tubal ligation S/P laparoscopic sleeve gastrectomy <MALCOLM Mauricio - Last Filed: 12/31/22 11:51> Family History Family History: Family History Father Heart disease Hypertension Mother Hypertension Heart disease Diabetes mellitus Heart attack Brother Diabetes mellitus Acute depression Anxiety Son Diabetes mellitus Hypertension Son No problems noted. Daughter No problems noted. Sister No problems noted. <MALCOLM Mauricio - Last Filed: 12/31/22 11:51> Social History Social History: Social History Alcohol intake: never Patient Tobacco Use Status: Former Tobacco user Advance Directives: No Advance Directives Information Provided: No <MALCOLM Mauricio - Last Filed: 12/31/22 11:51> Physical Exam Vital Signs: Vital Signs: Last Vital Signs Temp 98.6 F 12/31/22 11:46 Pulse 94 12/31/22 11:46 Resp 18 12/31/22 11:46 BP 135/83 12/31/22 11:46 Pulse Ox 98 12/31/22 11:46 O2 Del Method Room Air 12/31/22 11:46 BMI result Body Mass Index 40.0 <MALCOLM Mauricio - Last Filed: 12/31/22 11:51> Vital Signs: Last Vital Signs Temp 98.6 F 12/31/22 11:46 Pulse 94 12/31/22 11:46 Resp 18 12/31/22 11:46 BP 135/83 12/31/22 11:46 Pulse Ox 98 12/31/22 11:46 O2 Del Method Room Air 12/31/22 11:46 BMI result Body Mass Index 40.0 <MALCOLM Vences - Last Filed: 12/31/22 15:02> Const: General: cooperative, no acute distress, alert and awake <MALCOLM Vences - Last Filed: 12/31/22 15:02> Nutritional Appearance: well nourished <MALCOLM Vences - Last Filed: 12/31/22 15:02> Orientation/consciousness: patient oriented x3 <MALCOLM Vences - Last Filed: 12/31/22 15:02> Limitations: no limitations <MALCOLM Vences - Last Filed: 12/31/22 15:02> HEENT: Head: Yes normal to inspection and Yes atraumatic <MALCOLM Vences Last Filed: 12/31/22 15:02> Ears: hearing grossly normal bilaterally and other (right auricle swollen, erythematous, warm) <MALCOLM Vences Last Filed: 12/31/22 15:02> General nose exam: Normal external nose present, no nasal discharge noted and no epistaxis <MALCOLM Vences - Last Filed: 12/31/22 15:02> Face and sinus: Yes normal facial exam, No abrasion and No laceration <MALCOLM Vences - Last Filed: 12/31/22 15:02> Mouth: Normal oral and palatal mucosa present, no drooling and no muffled voice <Domenica Garcia HI - Last Filed: 12/31/22 15:02> Eyes: General: appearance normal, both eyes and all related structures <MALCOLM Vences - Last Filed: 12/31/22 15:02> Periorbital: periorbital findings normal <Domenica Garcia [place] - Last Filed: 12/31/22 15:02> Eyelids: Yes eyelids normal <Domenica Garcia [place] - Last Filed: 12/31/22 15:02> Conjunctivae: conjunctivae normal <Domenica Garcia [place] - Last Filed: 12/31/22 15:02> Pupils: Equal, round and reactive pupils present <MALCOLM Vences - Last Filed: 12/31/22 15:02> EOM: EOMs intact bilaterally <Domenica Garcia [place] - Last Filed: 12/31/22 15:02> Neck: Neck: Yes normal visual inspection, Yes full ROM and Yes no lymphadenopathy <MALCOLM Vences - Last Filed: 12/31/22 15:02> Chest: Chest palpation & inspection: normal inspection of the chest <MALCOLM Vences - Last Filed: 12/31/22 15:02> Resp: Effort & Inspection: normal respiratory effort and able to speak in complete sentences <MALCOLM Vences - Last Filed: 12/31/22 15:02> Auscultation: clear to auscultation bilaterally <MALCOLM Vences - Last Filed: 12/31/22 15:02> Cardio: Rate: regular rate <MALCOLM Vences - Last Filed: 12/31/22 15:02> Rhythm: regular rhythm <MALCOLM Vences - Last Filed: 12/31/22 15:02> GI: Inspection: Yes normal to inspection <MALCOLM Vences - Last Filed: 12/31/22 15:02> Neuro: General: patient oriented x3 and moves all extremities <MALCOLM Vences - Last Filed: 12/31/22 15:02> Cranial nerves: Yes Equal, round and reactive pupils present <Domenica Schwartzdonovan [place] - Last Filed: 12/31/22 15:02> Cognition (Neuro): normal cognition <Domenica Schwartzdonovan HI - Last Filed: 12/31/22 15:02> Motor exam (neuro): 5/5 motor strength present throughout <Domenica Schwartzdonovan HI - Last Filed: 12/31/22 15:02> Sensory Exam: Normal double simultaneous stimulation for sensation <Domenicanikki Schwartzdonovan [place] - Last Filed: 12/31/22 15:02> Coordination: [id number] test normal <Domenicanikki Schwartzdonovan [place] - Last Filed: 12/31/22 15:02> Extrem: General: Yes normal to inspection, Yes full ROM and Yes capillary refill normal <Domenica Schwartzdonovan [place] - Last Filed: 12/31/22 15:02> Psych: Appearance: grossly normal <Domenica MALCOLM Garcia - Last Filed: 12/31/22 15:02> Mental Status: mental status grossly normal <Domenicanikki Schwartzdonovan [place] - Last Filed: 12/31/22 15:02> Affect: normal affect <Domenica Garcia [facility] Last Filed: 12/31/22 15:02> Attitude: cooperative <Domenica Garcia [place] - Last Filed: 12/31/22 15:02> Thought process: Normal thought process present <MALCOLM Vences Last Filed: 12/31/22 15:02> Thought content: Normal thought content present <MALCOLM Vences Last Filed: 12/31/22 15:02> Insight: Good insight present (Psych) <Domenica Garcia [facility] Last Filed: 12/31/22 15:02> Course Course Course Narrative: RME - 47 y/o female presenting with worsening right ear pain for the last 5 days. She got started on augmentin and ciprodex 4 days ago and taking motrin 800 mg every 5 hours. She reports the pain is extending to the jaw and behind the ear. +tenderness to the mastoid on exam. Plan: CT mastoid, basic labs <MALCOLM Mauricio - Last Filed: 12/31/22 11:51> Medications Administered Discontinued Medications Generic Name Dose Route Start Last Admin Trade Name Freq PRN Reason Stop Dose Admin Oxycodone HCl 10 mg 12/31/22 13:41 12/31/22 14:07 Oxycodone Hcl Immed Release 5 Mg Tablet PO 12/31/22 13:42 10 mg ONCE ONE Administration <MALCOLM Mauricio - Last Filed: 12/31/22 11:51> Medications Administered Discontinued Medications Generic Name Dose Route Start Last Admin Trade Name Freq PRN Reason Stop Dose Admin Oxycodone HCl 10 mg 12/31/22 13:41 12/31/22 14:07 Oxycodone Hcl Immed Release 5 Mg Tablet PO 12/31/22 13:42 10 mg ONCE ONE Administration <MALCOLM Vences - Last Filed: 12/31/22 15:02> Medical Decision Making Medical Decision Making [facility] Narrative: Patient is a 47 year old assigned female at with history of GERD presenting to the emergency department today with right ear pain. Patient's physical exam showed an erythematous, warm, and mildly swollen right auricle but was otherwise unremarkable. Patient's blood work showed an elevated ESR and CRP. Patient's mastoid CT showed cellulitis of the right external auditory canal. I explained my physical exam findings as well as all test results to the patient. I answered all questions asked by the patient. I stressed the importance of the patient taking her medication as prescribed. I stressed the importance of the patient following up with her primary care provider and an ENT. I stressed the importance of the patient returning to the emergency department immediately if her symptoms were to worsen or if she were to develop any dizziness, shortness of breath, difficulty breathing, chest pain, blurry vision, loss of vision, nausea, vomiting, abdominal pain, fever, chills, back pain, or any other complaints. Patient verbalized agreement and understanding with this treatment plan and discharge. <MALCOLM Vences - Last Filed: 12/31/22 15:02> Differential Diagnosis Differential Diagnoses: The differential diagnosis associated with the presentation includes <MALCOLM Vences - Last Filed: 12/31/22 15:02> otitis externa, cellulitis of the ear <MALCOLM Vences - Last Filed: 12/31/22 15:02> Lab Data [facility] Lab Attestation statement: I reviewed the patient's lab results. <MALCOLM Vences - Last Filed: 12/31/22 15:02> Result Diagrams: 12/31/22 12:02 12/31/22 12:02 <MALCOLM Mauricio - Last Filed: 12/31/22 11:51> Labs: Lab Results 12/31/22 12/31/22 12/31/22 Range/Units 12:02 12:02 12:02 WBC 8.8 (4.8-10.8) X10*3/uL RBC 5.19 (4.20-5.50) X10*6/uL Hgb 13.2 (12.0-16.0) g/dl Hct 42.9 (37.0-47.0) % MCV 82.7 (80.0-98.0) fL MCH 25.4 L (27.0-33.0) pg MCHC 30.8 L (31.0-35.0) g/dl RDW 13.6 (11.0-16.0) % Plt Count 298 (160-400) X10*3/uL MPV 9.7 (9.4-12.3) fL Immature Gran % (Auto) 0.5 H (0.0-0.4) % Neut % (Auto) 65.1 (45-73) % Lymph % (Auto) 24.7 (20-40) % [place] % (Auto) 7.3 (2-11) % Eos % (Auto) 1.9 (0-4) % Baso % (Auto) 0.5 (0-2) % Lymph # (Auto) 2.2 (1.2-4.9) X10*3/uL [place] # (Auto) 0.6 (0.1-1.2) X10*3/uL Eos # (Auto) 0.2 (0.0-0.4) X10*3/uL Baso # (Auto) 0.0 (0.0-0.2) X10*3/uL Abs Immat Gran (auto) 0.04 H (0.00-0.03) X10*3/uL Absolute Neuts (auto) 5.7 (2.0-8.3) x10*3/uL Absolute Nucleated RBC 0.000 (0.0-0.012) X10*3/uL Nucleated RBC % (auto) 0.0 (0.0-0.2) /100WBC ESR 31 H (0-20) MM/HR Sodium 141 (135-145) mmol/L Potassium 4.1 (3.3-5.1) mmol/L Chloride 107 (96-108) mmol/L Carbon Dioxide 27 (22-29) mmol/L Anion Gap 11 L (12-20) BUN 11 (9-16) mg/dL Creatinine 0.63 (0.5-1.4) mg/dL Estim Creat Clear Calc 118.2 Estimated GFR > 60 Random Glucose 101 (60-115) mg/dL Calcium 9.0 D (8.4-10.2) mg/dL C-Reactive Protein 2.18 H (< or = 0.50) mg/dL <MALCOLM Mauricio - Last Filed: 12/31/22 11:51> Lab Results 12/31/22 12/31/22 12/31/22 Range/Units 12:02 12:02 12:02 WBC 8.8 (4.8-10.8) X10*3/uL RBC 5.19 (4.20-5.50) X10*6/uL Hgb 13.2 (12.0-16.0) g/dl Hct 42.9 (37.0-47.0) % MCV 82.7 (80.0-98.0) fL MCH 25.4 L (27.0-33.0) pg MCHC 30.8 L (31.0-35.0) g/dl RDW 13.6 (11.0-16.0) % Plt Count 298 (160-400) X10*3/uL MPV 9.7 (9.4-12.3) fL Immature Gran % (Auto) 0.5 H (0.0-0.4) % Neut % (Auto) 65.1 (45-73) % Lymph % (Auto) 24.7 (20-40) % [place] % (Auto) 7.3 (2-11) % Eos % (Auto) 1.9 (0-4) % Baso % (Auto) 0.5 (0-2) % Lymph # (Auto) 2.2 (1.2-4.9) X10*3/uL [place] # (Auto) 0.6 (0.1-1.2) X10*3/uL Eos # (Auto) 0.2 (0.0-0.4) X10*3/uL Baso # (Auto) 0.0 (0.0-0.2) X10*3/uL Abs Immat Gran (auto) 0.04 H (0.00-0.03) X10*3/uL Absolute Neuts (auto) 5.7 (2.0-8.3) x10*3/uL Absolute Nucleated RBC 0.000 (0.0-0.012) X10*3/uL Nucleated RBC % (auto) 0.0 (0.0-0.2) /100WBC ESR 31 H (0-20) MM/HR Sodium 141 (135-145) mmol/L Potassium 4.1 (3.3-5.1) mmol/L Chloride 107 (96-108) mmol/L Carbon Dioxide 27 (22-29) mmol/L Anion Gap 11 L (12-20) BUN 11 (9-16) mg/dL Creatinine 0.63 (0.5-1.4) mg/dL Estim Creat Clear Calc 118.2 Estimated GFR > 60 Random Glucose 101 (60-115) mg/dL Calcium 9.0 D (8.4-10.2) mg/dL C-Reactive Protein 2.18 H (< or = 0.50) mg/dL <MALCOLM Vences - Last Filed: 12/31/22 15:02> Radiology Impression Discussion of test interpretation with radiology: I have reviewed the radiologist's reading. <MALCOLM Vences - Last Filed: 12/31/22 15:02> Radiologist Impression: My interpretation is in agreement with the radiologist's impression of this imaging study. CT TEMPORAL BONE WITHOUT CONTRAST INDICATION: Right mastoid tenderness. COMPARISON: None available. TECHNIQUE: Multidetector CT acquisitions of the temporal bones obtained without IV contrast. This CT examination was performed using dose optimization techniques as appropriate, variously including the following: *Automated exposure control *Adjustment of mA and/or kV according to patient size (this includes techniques or standardized protocols for targeted exams where dose is matched to indication/reason for exam; i.e. extremities or head) *Use of iterative reconstruction technique FINDINGS: Soft tissue thickening of the right cartilaginous external auditory canal with mild adjacent cellulitis, findings most suggestive of otitis externa. There is no drainable fluid collection to suggest abscess. Mild nonspecific partial opacification of the right epitympanum anteriorly as well as mild soft tissue within Prussak's space without associated bone erosion. The remainder of the right middle ear cavity is clear and the right mastoid air cells are clear. Left mastoid air cells and left middle ear cavity are clear. The inner ear structures are unremarkable. The paranasal sinuses remain well-aerated. No suspicious intraosseous lesions. The TMJs are unremarkable. CT/CT mastoid IMPRESSION: Soft tissue thickening of the right cartilaginous external auditory canal with mild adjacent cellulitis, findings most suggestive of otitis externa. There is no drainable fluid collection to suggest abscess. Mild nonspecific partial opacification of the right epitympanum anteriorly as well as mild soft tissue within Prussak's space without associated bone erosion. The remainder of the right middle ear cavity is clear and the right mastoid air cells are clear. Dictated By: Dieudonne Stroud MD Signed By: Electronically signed by Dieudonne Stroud MD 12/31/22 1353 <MALCOLM Vences - Last Filed: 12/31/22 15:02> Discharge Plan Discharge Clinical Impression: Cellulitis, Otitis externa <MALCOLM Mauricio - Last Filed: 12/31/22 11:51> Patient Disposition: Home, Self-Care <MALCOLM Mauricio - Last Filed: 12/31/22 11:51> Instructions: Cellulitis (DC), Otitis Externa (DC) <MALCOLM Mauricio - Last Filed: 12/31/22 11:51> Additional Instructions: STOP the augmentin and instead take the Keflex and Doxycycline. Continue the drops as directed. Follow up with your primary care provider and an ENT. Return to the emergency department immediately if your symptoms worsen or if you develop any dizziness, shortness of breath, difficulty breathing, chest pain, blurry vision, loss of vision, nausea, vomiting, abdominal pain, fever, chills, back pain, or any other complaints. <MALCOLM Mauricio - Last Filed: 12/31/22 11:51> Prescriptions: New cephalexin 500 mg capsule 500 mg PO Q6H 7 Days Qty: 28 0RF doxycycline hyclate 100 mg tablet 100 mg PO BID 7 Days Qty: 14 0RF naproxen 500 mg tablet 500 mg PO BID 7 Days Qty: 14 0RF No Action vitamin A palmitate 10,000 unit capsule 10,000 unit PO DAILY Qty: 30 2RF clonazepam 0.5 mg tablet 0.5 mg PO BID PRN (Reason: Anxiety) naratriptan 2.5 mg tablet 2.5 mg PO DAILY PRN (Reason: migraine) ibuprofen 800 mg tablet 800 mg PO DAILY PRN (Reason: pain) cyclobenzaprine 5 mg tablet 5 mg PO TID PRN (Reason: muscle pain) loratadine 10 mg tablet 10 mg PO DAILY PRN (Reason: Allergy Symptoms) ondansetron 4 mg tablet,disintegrating 4 mg PO Q6H PRN (Reason: Nausea) albuterol sulfate 90 mcg/actuation HFA aerosol inhaler 2 puff PO Q4H PRN (Reason: Wheezing) atorvastatin 10 mg tablet 40 mg PO DAILY gabapentin 100 mg capsule 100 mg PO TID ascorbate calcium (vitamin C) 500 mg tablet 500 mg PO DAILY pantoprazole 40 mg tablet,delayed release (DR/EC) 40 mg PO BID Qty: 180 3RF sucralfate 100 mg/mL suspension 10 ml PO BID Qty: 414 2RF <MALCOLM Mauricio - Last Filed: 12/31/22 11:51> Referrals: Enrico Rutherford [Physician] - (Call to establish and follow up with an ENT.) Valerie Rios FNP [Primary Care Provider] - <MALCOLM Mauricio - Last Filed: 12/31/22 11:51> Stand Alone Forms: Work/School Release <MALCOLM Mauricio - Last Filed: 12/31/22 11:51> Interventions: ED Discharge Assessment Last Done: 12/31/22 14:36 <MALCOLM Mauricio - Last Filed: 12/31/22 11:51> Discharge Date/Time: 12/31/22 14:36 <MALCOLM Mauricio - Last Filed: 12/31/22 11:51> Print Language: Greenlandic <MALCOLM Mauricio - Last Filed: 12/31/22 11:51>
[2022-12-31 12:07] LABS: MANUAL DIFF FLAG NO
[2022-12-31 12:21] LABS: Basophils Percent Auto 0.5 % (0-2); Eosinophils Absolute Auto 0.2 X10*3/uL (0.0-0.4); Eosinophils Percent Auto 1.9 % (0-4); Hematocrit 42.9 % (37.0-47.0); Hemoglobin 13.2 g/dl (12.0-16.0); Imm Gran Abs Auto 0.04 X10*3/uL (0.00-0.03); Imm Gran Pct Auto 0.5 % (0.0-0.4); Lymphocytes Absolute Auto 2.2 X10*3/uL (1.2-4.9); Lymphocytes Percent Auto 24.7 % (20-40); Mean Corpuscular HGB Conc 30.8 g/dl (31.0-35.0); Mean Corpuscular Hemoglobin 25.4 pg (27.0-33.0); Mean Corpuscular Volume 82.7 fL (80.0-98.0); Mean Platelet Volume 9.7 fL (9.4-12.3); Monocytes Absolute Auto 0.6 X10*3/uL (0.1-1.2); Monocytes Percent Auto 7.3 % (2-11); Neutrophils Absolute Auto 5.7 x10*3/uL (2.0-8.3); Neutrophils Percent Auto 65.1 % (45-73); Platelet Count 298 X10*3/uL (160-400); Red Blood Count 5.19 X10*6/uL (4.20-5.50); Red Cell Distribution Width 13.6 % (11.0-16.0); White Blood Count 8.8 X10*3/uL (4.8-10.8)
[2022-12-31 12:26] LABS: Anion Gap 11 (12-20); Blood Urea Nitrogen 11 mg/dL (9-16); C Reactive Protein 2.18 mg/dL (< or = 0.50); Carbon Dioxide 27 mmol/L (22-29); Chloride 107 mmol/L (96-108); Creatinine Clr Calc Pharmacy 118.2; Estimated Glomerular Filt Rate > 60; Glucose Random 101 mg/dL (60-115); Potassium 4.1 mmol/L (3.3-5.1); Sodium 141 mmol/L (135-145)
[2022-12-31 13:07] LABS: Erythrocyte Sedimentation Rate 31 MM/HR (0-20)
[2022-12-31] MEDS: oxyCODONE HCl Immed Release 5 MG TABLET 10 MG PO (14:07)
== END 2022-12-31 14:36 | disposition home or self-care (01) ==
PROVIDERS: Physician Assistant; Emergency Provider Emergency Medicine Emergency Medical Services; PCP Registered Nurse
DX: H60.11 Cellulitis of right external ear (principal); H60.91 Unspecified otitis externa, right ear; H92.01 Otalgia, right ear; E78.5 Hyperlipidemia, unspecified; Z79.899 Other long term (current) drug therapy; Z79.02 Long term (current) use of antithrombotics/antiplatelets
CPT/HCPCS: 36415; 70481; 80048; 85025; 85652; 86140; 99283; 99284

== ENCOUNTER 2023-03-16 09:08 | Outpatient (REF) | payer MEDICARE, MEDICAID, SELFPAY ==
[2023-03-16 10:02] LABS: MANUAL DIFF FLAG NO
[2023-03-16 10:45] LABS: Basophils Percent Auto 0.4 % (0-2); Eosinophils Absolute Auto 0.3 X10*3/uL (0.0-0.4); Eosinophils Percent Auto 4.2 % (0-4); Hematocrit 46.1 % (37.0-47.0); Hemoglobin 14.4 g/dl (12.0-16.0); Imm Gran Abs Auto 0.02 X10*3/uL (0.00-0.03); Imm Gran Pct Auto 0.3 % (0.0-0.4); Lymphocytes Absolute Auto 2.3 X10*3/uL (1.2-4.9); Lymphocytes Percent Auto 32.9 % (20-40); Mean Corpuscular HGB Conc 31.2 g/dl (31.0-35.0); Mean Corpuscular Hemoglobin 25.8 pg (27.0-33.0); Mean Corpuscular Volume 82.6 fL (80.0-98.0); Mean Platelet Volume 10.2 fL (9.4-12.3); Monocytes Absolute Auto 0.5 X10*3/uL (0.1-1.2); Monocytes Percent Auto 7.1 % (2-11); Neutrophils Absolute Auto 3.8 x10*3/uL (2.0-8.3); Neutrophils Percent Auto 55.1 % (45-73); Platelet Count 284 X10*3/uL (160-400); Red Blood Count 5.58 X10*6/uL (4.20-5.50); Red Cell Distribution Width 15.3 % (11.0-16.0); White Blood Count 6.9 X10*3/uL (4.8-10.8)
[2023-03-16 11:23] LABS: Estimated Average Glucose 97 mg/dL
[2023-03-16 11:57] LABS: Alanine Aminotransferase 15 U/L (0-31); Albumin Level 4.1 g/dL (3.5-5.0); Alkaline Phosphatase 99 U/L (39-117); Anion Gap 15 (12-20); Aspartate Amino Transferase 18 U/L (5-31); Bilirubin Total 0.5 mg/dL (0.0-1.0); Blood Urea Nitrogen 12 mg/dL (9-16); C Reactive Protein 0.42 mg/dL (< or = 0.50); Calcium 9.8 mg/dL (8.4-10.2); Carbon Dioxide 23 mmol/L (22-29); Chloride 107 mmol/L (96-108); Cholesterol 263 mg/dL; Estimated Glomerular Filt Rate > 60; Glucose Random 94 mg/dL (60-115); HDL Cholesterol 52 mg/dL; Iron 88 mcg/dL (30-160); LDL Cholesterol Calculated 190 mg/dl; Percent Iron Saturation 22 % (15-50); Potassium 3.5 mmol/L (3.3-5.1); Sodium 141 mmol/L (135-145); Total Iron Binding Capacity 393 mcg/dL (228-428); Total Protein 7.5 g/dL (6.5-8.0); Triglycerides 107 mg/dL; Unsaturated Iron Binding 305 ug/dL
[2023-03-16 12:19] LABS: Ferritin 22 ng/mL (10-250); TSH reflex Free T4 1.07 uIU/mL (0.32-4.0); Vitamin D 25-OH Total 48.8 ng/mL (>30)
[2023-03-16 12:28] LABS: Folate 11.1 ng/mL (> or = 4.0); Vitamin B12 1586 pg/mL (200-900)
[2023-03-16 13:04] LABS: Insulin 12 uU/mL (2-29)
[2023-03-18 14:18] LABS: Calcium (PTHI) 9.2 mg/dL (8.6-10.2); PTHI 57 pg/mL (16-77)
[2023-03-19 06:09] LABS: Zinc 80 mcg/dL (60-130)
[2023-03-21 17:49] LABS: Vitamin A 35 mcg/dL (38-98)
[2023-03-22 12:02] LABS: Vitamin B1 <6 nmol/L (8-30)
== END 2023-03-16 09:09 | disposition home or self-care (01) ==
LOC: HO.LAB 09:08
PROVIDERS: PCP Registered Nurse; Visit Provider Physician Assistant Surgical
DX: K21.9 Gastro-esophageal reflux disease without esophagitis (principal); E66.9 Obesity, unspecified; Z98.84 Bariatric surgery status; K91.2 Postsurgical malabsorption, not elsewhere classified
CPT/HCPCS: 36415; 80053; 80061; 82306; 82607; 82728; 82746; 83036; 83525; 83540; 83970; 84425; 84443; 84590; 84630; 85025; 86140; 99212

== ENCOUNTER 2023-07-01 10:18 | Outpatient (REF) | payer MEDICARE, MEDICAID, SELFPAY ==
--- NOTE | ~2023-07-01 | MM_ITS ---
EXAMINATION: MM SCREENING DIGITAL BREAST TOMOSYNTHESIS, BILATERAL CLINICAL INFORMATION: Screening. Asymptomatic. COMPARISON: Mammography: This study is compared with prior exams dating back to 2009. TECHNIQUE: Digital breast tomosynthesis is performed in both the craniocaudal and mediolateral oblique views along with computer-aided detection (CAD). Synthesized 2D images are generated from the tomosynthesis. FINDINGS: The breasts are heterogeneously dense, which may obscure small masses (ACR BI-RADS breast composition Category c). There are no significant masses, abnormal calcifications, or other abnormalities. There is a tissue marker present in the lateral aspect of the left breast contains site of prior benign percutaneous biopsy. MM/MM tomosynthesis screening BI IMPRESSION: No mammographic evidence of malignancy. ASSESSMENT: BI-RADS BI-RADS 2 - Benign Findings RECOMMENDATION: Routine annual mammography screening. 1 year F/U This examination should not preclude the clinical evaluation of a suspicious palpable abnormality. This patient's information was entered into a reminder system with a target due date for their next mammogram.
== END 2023-07-01 10:19 | disposition home or self-care (01) ==
LOC: HO.MAMMO 10:18
PROVIDERS: PCP Registered Nurse; Visit Provider Registered Nurse
DX: Z12.31 Encounter for screening mammogram for malignant neoplasm of breast (principal)
CPT/HCPCS: 77063; 77067

== ENCOUNTER → 2023-07-01 10:30 | Outpatient (BNV) | payer MEDICARE, MEDICAID, SELFPAY | PROVIDERS: PCP Registered Nurse; Visit Provider Radiology Diagnostic Radiology | DX: Z12.31 Encounter for screening mammogram for malignant neoplasm of breast (principal) | CPT/HCPCS: 77063; 77067 ==

== ENCOUNTER 2023-11-11 09:39 | Outpatient (REF) | payer MEDICARE, MEDICAID, SELFPAY ==
--- NOTE | ~2023-11-11 | XR_ITS ---
EXAMINATION: XR KNEE, RIGHT CLINICAL INFORMATION: Worsening right knee pain. No trauma COMPARISON: None available. TECHNIQUE: Four views of the right knee. FINDINGS: No fracture or joint effusion. Alignment is anatomic. Joint spaces are maintained. No abnormal soft tissue calcification. XR/XR knee RT 3V IMPRESSION: Unremarkable right knee.
== END 2023-11-11 09:40 | disposition home or self-care (01) ==
LOC: HO.HHCX 09:39
PROVIDERS: Visit Provider Emergency Medicine
DX: M25.561 Pain in right knee (principal); J02.9 Acute pharyngitis, unspecified
CPT/HCPCS: 73562; 87070

== ENCOUNTER 2023-12-31 10:48 | Outpatient (AMB) | payer MEDICARE, MEDICAID, SELFPAY ==
--- NOTE | 2023-12-31 10:36 | A.OFFVIS_ITS ---
Intake VS Expanded 12/31/23 10:42 Height 5 ft 1 in Weight 202 lb BMI 38.2 Intake Visit Reasons: (TV) PO LSG 04/08/17 Allergies No Known Allergies [No Known Allergies*] Allergy (Verified 03/16/23 09:21) Medication List - Last Reconciled 12/31/23 by MALCOLM Castellon albuterol sulfate 90 mcg/actuation 2 puffs PO Q4H PRN ascorbate calcium (vitamin C) 500 mg PO DAILY atorvastatin 40 mg PO DAILY clonazepam 0.5 mg PO BID PRN cyclobenzaprine 5 mg PO TID PRN gabapentin 100 mg PO TID ibuprofen 800 mg PO DAILY PRN loratadine 10 mg PO DAILY PRN naratriptan 2.5 mg PO DAILY PRN thiamine HCl (vitamin B1) 100 mg PO DAILY vitamin A palmitate 10,000 units PO DAILY HPI HPI Comments History of Present Illness Details This?is a?48?yo female who is s/p LSG 04/08/2017. Weight same since last visit 10 months ago. She complains her weight is stuck even though she feels like she is not eating much. Having occasional reflux again. No complaints of nausea, emesis, abdominal pain, or constipation. Present meal plan includes: Encouraged more consistent protein intake; emphasized not skipping meals, not drinking coffee on empty stomach drinks light coffee with 1-2tbsp heavy whipping cream intermittent fasting will have salad at lunchtime, makes own dressing, 4oz protein will have a Celebrate shake in afternoon previous plan was: breakfast: shake, or 2 eggs, or greenlandic yogurt/cc with fruit, or bar lunch: meat and veg/salad, or shake, or yog/cc, or bar dinner: meat and veg/salad ? Pt reports being on and off meal plan, restarted a month ago. Tracking her food in [employer] dolly. Exercise: bought a treadmill [facility] Medical History Elevated cholesterol GERD (gastroesophageal reflux disease) Hx of uterine prolapse Intestinal malabsorption following gastrectomy Obesity (BMI 30-39.9) Rectocele Surgical History History of abdominoplasty History of bladder suspension procedure History of cholecystectomy History of sleeve gastrectomy Hx of abdominoplasty Hx of appendectomy Hx of section Hx of colonoscopy Hx of decompression of ulnar nerve Hx of tubal ligation S/P laparoscopic sleeve gastrectomy Family History Father Heart disease Hypertension Mother Hypertension Heart disease Diabetes mellitus Heart attack Brother Diabetes mellitus Acute depression Anxiety Son Diabetes mellitus Hypertension Son No problems noted. Daughter No problems noted. Sister No problems noted. Social History Alcohol intake: never Patient Tobacco Use Status: Former Tobacco user Assessment & Plan Assessment & Plan (1) Obesity (BMI 30-39.9): Code(s): E66.9 - Obesity, unspecified (2) S/P laparoscopic sleeve gastrectomy: Code(s): Z98.84 - Bariatric surgery status Plan Pt is not getting enough protein. Needs to add another protein shake to her meal plan. Using Celebrate now but considering changing due to cost so I recommended Pure Protein as comparable. Needs 2 shakes (1 scoop each for Pure, 2 scoops for Celebrate) plus her meal with about 4oz protein. We also discussed the importance of exercise in weight loss. She had her labs done at [facility], will send them to me. RTC 6 weeks per pt preference. Patient is obese and is not considered stable at this time. I spent a total of 30 minutes reviewing/updating records, examining the patient and counseling the patient on weight management as detailed above. Telehealth Telehealth Location of provider rendering services: practice address Location of patient: address on file Patient Identification confirmed using: Name, : Yes Telehealth method: voice only Patient verbally consented to treatment: Yes Patient verbally consented to billing insurance company: Yes Patient informed of any privacy concerns related to visit: Yes Minutes spent on Phone/Video with Pt.: 18 Coding Level of Care Code Tele Est Pt Level 4 (74209) Diagnoses Obesity (BMI 30-39.9) E66.9 S/P laparoscopic sleeve gastrectomy Z98.84
[2023-12-31 10:42] VITALS: BMI 38.2
== END 2023-12-31 11:00 | disposition home or self-care (01) ==
LOC: HO.HBS 10:48
PROVIDERS: PCP Registered Nurse; Visit Provider Physician Assistant Surgical
DX: E66.9 Obesity, unspecified (principal); Z68.38 Body mass index [BMI] 38.0-38.9, adult; Z90.3 Acquired absence of stomach [part of]; Z98.84 Bariatric surgery status
CPT/HCPCS: 99442

== ENCOUNTER → 2023-12-31 10:48 | Outpatient (BNVA) | payer MEDICARE, MEDICAID, SELFPAY | PROVIDERS: PCP Registered Nurse; Visit Provider Physician Assistant Surgical ==

== ENCOUNTER → 2024-01-28 10:13 | Outpatient (BNVA) | payer MEDICARE, MEDICAID, SELFPAY | PROVIDERS: PCP Registered Nurse; Visit Provider Physician Assistant Surgical ==

== ENCOUNTER → 2024-03-03 11:42 | Outpatient (BNVA) | payer MEDICARE, MEDICAID, SELFPAY | PROVIDERS: PCP Registered Nurse; Visit Provider Physician Assistant Surgical ==

== ENCOUNTER 2024-03-03 12:46 | Outpatient (AMB) | payer MEDICARE, MEDICAID, SELFPAY ==
--- NOTE | 2024-03-03 12:12 | MHC.OFFVISWM ---
Intake Visit Reasons: TELEPHONE PO LSG 04/08/17 Allergies No Known Allergies [No Known Allergies*] Allergy (Verified 03/16/23 09:21) Medication List - Last Reconciled 03/03/24 by MALCOLM Castellon albuterol sulfate 90 mcg/actuation 2 puffs PO Q4H PRN ascorbate calcium (vitamin C) 500 mg PO DAILY atorvastatin 40 mg PO DAILY clonazepam 0.5 mg PO BID PRN cyclobenzaprine 5 mg PO TID PRN gabapentin 100 mg PO TID ibuprofen 800 mg PO DAILY PRN loratadine 10 mg PO DAILY PRN naratriptan 2.5 mg PO DAILY PRN sennosides (Senokot) 8.6 mg PO DAILY PRN thiamine HCl (vitamin B1) 100 mg PO DAILY vitamin A palmitate 10,000 units PO DAILY HPI Comments Details: This?is a?49?yo female who is s/p LSG 04/08/2017. Weight at last visit on 12/31/2023 was 202 pounds with a BMI of 38.2, weight today is 180 pounds, representing a 22 pound weight loss.? No complaints of nausea, emesis, abdominal pain or reflux, or constipation. Starting naltrexone for chronic fatigue. this also decreased her appetite. had an episode of feeling faint/anxious, thinks it was low blood sugar Present meal plan includes: intermittent fasting, 10am-6pm did buy Celebrate rebuild shakes today at [employer] may eat almonds at 10am has eggs a little later and half an avocado also bought vitamins Exercise routine includes: I'm still trying to work on that I haven't used my treadmill, I'm not going to lie wants to walk and buy a bike [facility] Medical History Elevated cholesterol GERD (gastroesophageal reflux disease) Hx of uterine prolapse Intestinal malabsorption following gastrectomy Obesity (BMI 30-39.9) Rectocele Surgical History History of abdominoplasty History of bladder suspension procedure History of cholecystectomy History of sleeve gastrectomy Hx of abdominoplasty Hx of appendectomy Hx of section Hx of colonoscopy Hx of decompression of ulnar nerve Hx of tubal ligation S/P laparoscopic sleeve gastrectomy Family History Father Heart disease Hypertension Mother Hypertension Heart disease Diabetes mellitus Heart attack Brother Diabetes mellitus Acute depression Anxiety Son Diabetes mellitus Hypertension Son No problems noted. Daughter No problems noted. Sister No problems noted. Social History Alcohol intake: never Patient Tobacco Use Status: Former Tobacco user Telehealth Telehealth Telehealth Platform: Telephone Location of provider rendering services: other Location of patient: address on file Patient Identification confirmed using: Name, : Yes Telehealth method: voice only Patient verbally consented to treatment: Yes Patient verbally consented to billing insurance company: Yes Patient informed of any privacy concerns related to visit: Yes Minutes spent on Phone/Video with Pt.: 15 Assessment & Plan Assessment & Plan (1) S/P laparoscopic sleeve gastrectomy: Code(s): Z98.84 - Bariatric surgery status Category: Surgical (2) Obesity (BMI 30-39.9): Code(s): E66.9 - Obesity, unspecified Category: Medical Plan Goal protein intake 70-75g. Pt plans to have 3 Rebuild shake per day plus one small meal 3-4 forks of protein. Encouraged her to resume exercise. She will start jared MVI. Let me know if she has another episode of low blood sugar, provided my phone # to text. RTC 3 months. Patient is obese and is not considered stable at this time. I spent a total of 30 minutes reviewing/updating records, examining the patient and counseling the patient on weight management as detailed above.
== END 2024-03-03 12:54 | disposition home or self-care (01) ==
PROVIDERS: PCP Registered Nurse; Visit Provider Physician Assistant Surgical
DX: E66.9 Obesity, unspecified (principal); Z68.38 Body mass index [BMI] 38.0-38.9, adult; Z90.3 Acquired absence of stomach [part of]; Z98.84 Bariatric surgery status
CPT/HCPCS: 99442

== ENCOUNTER 2024-07-08 09:27 | Outpatient (REF) | payer MEDICARE, MEDICAID, SELFPAY ==
[2024-07-08 13:10] LABS: MANUAL DIFF FLAG NO
[2024-07-08 13:37] LABS: Basophils Percent Auto 0.4 % (0-2); Eosinophils Absolute Auto 0.1 X10*3/uL (0.0-0.4); Eosinophils Percent Auto 1.3 % (0-4); Hematocrit 44.2 % (37.0-47.0); Hemoglobin 14.1 g/dl (12.0-16.0); Imm Gran Abs Auto 0.05 X10*3/uL (0.00-0.03); Imm Gran Pct Auto 0.6 % (0.0-0.4); Lymphocytes Absolute Auto 2.6 X10*3/uL (1.2-4.9); Lymphocytes Percent Auto 31.2 % (20-40); Mean Corpuscular HGB Conc 31.9 g/dl (31.0-35.0); Mean Corpuscular Hemoglobin 27.3 pg (27.0-33.0); Mean Corpuscular Volume 85.7 fL (80.0-98.0); Mean Platelet Volume 10.3 fL (9.4-12.3); Monocytes Absolute Auto 0.5 X10*3/uL (0.1-1.2); Monocytes Percent Auto 5.8 % (2-11); Neutrophils Absolute Auto 5.1 x10*3/uL (2.0-8.3); Neutrophils Percent Auto 60.7 % (45-73); Platelet Count 298 X10*3/uL (160-400); Red Blood Count 5.16 X10*6/uL (4.20-5.50); Red Cell Distribution Width 13.2 % (11.0-16.0); White Blood Count 8.5 X10*3/uL (4.8-10.8)
[2024-07-08 13:38] LABS: Estimated Average Glucose 97 mg/dL; Hemoglobin A1C 115.2021 umol/L; Total Hemoglobin (HGBA1C) 3656.3634 umol/L
[2024-07-08 14:07] LABS: Alanine Aminotransferase 11 U/L (0-31); Albumin Level 4.4 g/dL (3.5-5.0); Alkaline Phosphatase 108 U/L (39-117); Anion Gap 14 (12-20); Aspartate Amino Transferase 13 U/L (5-31); Bilirubin Total 0.5 mg/dL (0.0-1.0); Blood Urea Nitrogen 18 mg/dL (9-16); C Reactive Protein 0.37 mg/dL (< or = 0.50); Calcium 9.5 mg/dL (8.4-10.2); Carbon Dioxide 26 mmol/L (22-29); Chloride 104 mmol/L (96-108); Cholesterol 191 mg/dL (<200); Estimated Glomerular Filt Rate > 60; Glucose Random 84 mg/dL (60-115); HDL Cholesterol 77 mg/dL (>40); Iron 115 mcg/dL (30-160); LDL Cholesterol Calculated 98 mg/dL (<100); Percent Iron Saturation 31 % (15-50); Potassium 4.5 mmol/L (3.3-5.1); Sodium 139 mmol/L (135-145); Total Iron Binding Capacity 376 mcg/dL (228-428); Total Protein 7.4 g/dL (6.5-8.0); Triglycerides 84 mg/dL (<150); Unsaturated Iron Binding 261 ug/dL
[2024-07-08 14:24] LABS: Ferritin 57 ng/mL (10-250); Insulin 5 uU/mL (2-29); TSH reflex Free T4 0.45 uIU/mL (0.32-4.0); Vitamin D 25-OH Total 51.2 ng/mL (>30)
[2024-07-08 14:33] LABS: Folate 11.5 ng/mL (> or = 4.0); Vitamin B12 910 pg/mL (200-900)
[2024-07-12 04:09] LABS: Zinc 73 mcg/dL (60-130)
[2024-07-14 03:18] LABS: Vitamin A 51 mcg/dL (38-98)
[2024-07-14 15:24] LABS: Vitamin B1 8 nmol/L (8-30)
== END 2024-07-08 09:28 | disposition home or self-care (01) ==
LOC: HO.HMGCLDS 09:27
PROVIDERS: PCP Registered Nurse; Visit Provider Physician Assistant Surgical
DX: Z98.84 Bariatric surgery status (principal); Z13.1 Encounter for screening for diabetes mellitus
CPT/HCPCS: 36415; 80053; 80061; 82306; 82607; 82728; 82746; 83036; 83525; 83540; 84425; 84443; 84590; 84630; 85025; 86140

== ENCOUNTER 2024-07-12 13:12 | Outpatient (REF) | payer MEDICARE, MEDICAID, SELFPAY ==
--- NOTE | ~2024-07-12 | MM_ITS ---
EXAMINATION: MM SCREENING DIGITAL BREAST TOMOSYNTHESIS, BILATERAL CLINICAL INFORMATION: Screening. Asymptomatic. COMPARISON: Mammography: Comparison is made with available priors TECHNIQUE: Digital breast mammography with tomosynthesis is performed in both the craniocaudal and mediolateral oblique views along with computer-aided detection (CAD). FINDINGS: The breasts are heterogeneously dense, which may obscure small masses (ACR BI-RADS breast composition Category c). Left Marker clip. There are no significant masses, abnormal calcifications, or other abnormalities. MM/MM tomosynthesis screening BI IMPRESSION: No mammographic evidence of malignancy. ASSESSMENT: BI-RADS BI-RADS 2 - Benign Findings RECOMMENDATION: Routine annual mammography screening. 1 year F/U This examination should not preclude the clinical evaluation of a suspicious palpable abnormality. This patient's information was entered into a reminder system with a target due date for their next mammogram. Electronically signed by: Radha Cortez DO 07/25/2024 05:22 PM EDT
== END 2024-07-12 13:13 | disposition home or self-care (01) ==
LOC: HO.MAMMO 13:12
PROVIDERS: PCP Registered Nurse; Visit Provider Registered Nurse
DX: Z12.31 Encounter for screening mammogram for malignant neoplasm of breast (principal)
CPT/HCPCS: 77063; 77067

== ENCOUNTER → 2024-07-12 13:30 | Outpatient (BNV) | payer MEDICARE, MEDICAID, SELFPAY | PROVIDERS: PCP Registered Nurse; Visit Provider Internal Medicine | DX: Z12.31 Encounter for screening mammogram for malignant neoplasm of breast (principal) | CPT/HCPCS: 77063; 77067 ==

== ENCOUNTER 2025-03-17 09:28 | Outpatient (REF) | payer MEDICARE, MEDICAID, SELFPAY ==
--- OUTSIDE RECORDS SUMMARY | 2025-03-12 23:59 | XMS_ITS | Continuity of Care Document ---
Author Organization [facility] Address [address] [place] [id number] Care Team Providers Care Capacity Planner Name Role Phone Laurel MUFFLE OPERATOR, Valerie Primary Care Physician Encounter [facility] Date(s): 02/10/25 - 03/12/25 [facility] [address] [place] [id number] Encounter Type: Triage Allergies, Adverse Reactions, Alerts No Known Allergies Immunizations Given and Recorded Vaccine Date Status Refusal Reason tetanus/diphtheria/pertussis, acel(Tdap) 07/12/13 Given Medications acetaminophen 325 mg oral tablet 650 mg, By Mouth, Every 6 hours, PRN, not to exceed 4000 mg/day, # 50 tablet, Refills 0, Tot. Refills 0, Maintenance, Pain , Mild, 12/05/21 11:29:00 AM EST, Route to Pharmacy Electronically, [facility] #[id number], Partial fill upon patient request if the prescription is for a schedule II opioid drug., 154.9, cm, 12/05/21 8:05:00 EST, Height, 81.8, kg, 11/28/21 14:15:00 EST, Dry Weight Start Date: 12/05/21 Status: Ordered Quantity: 50.0 Unit: tablet Repeat number: 1 clonazePAM 0.5 mg oral tablet 1 tablet, By Mouth, 2 times a day, PRN NEEDED FOR ANXIETY, # 60 tablet, 2 Refills, Maintenance, 09/26/21 3:36:00 PM EST, [facility] #[id number], PLEASE CANCEL ALL OTHER CLONAZEPAM SCRIPTS, 155, cm, 09/04/21 12:57:00 EST, Height, 76.5, kg, 12/20/20 13:55:00 EDT, Dry Weight Start Date: 09/26/21 Stop Date: 12/25/21 Status: Ordered Quantity: 60.0 Unit: tablet Repeat number: 3 cloNIDine 0.1 mg oral tablet 0.1 mg, 1, tablet, By Mouth, Daily at bedtime, # 30 tablet, Refills 0, Maintenance, 02/07/24 12:40:00 AM EDT, Partial fill upon patient request if the prescription is for a schedule II opioid drug. Start Date: 02/07/24 Status: Ordered Quantity: 30.0 Unit: tablet Repeat number: 1 Flexeril 10 mg oral tablet 10 mg, By Mouth, Daily at bedtime, PRN, Refills 0, Maintenance, Spasm, 10/03/19 10:22:00 AM EST Start Date: 10/03/19 Status: Ordered Repeat number: 1 naltrexone 50 mg oral tablet See Instructions, takes 1/4 of tablet daily in AM, 0 Refills, Maintenance, 01/07/24 9:06:00 AM EDT, Tablet, Partial fill upon patient request if the prescription is for a schedule II opioid drug. Start Date: 01/07/24 Status: Ordered Repeat number: 1 ProAir HFA 90 mcg/inh inhalation aerosol with adapter 2 puffs, Inhalation, 4 times a day, PRN Wheezing/Shortness of Breath, 0 Refills, Maintenance, 05/09/14 2:29:20 PM EDT Start Date: 05/09/14 Status: Ordered Repeat number: 1 rosuvastatin 10 mg oral capsule 1 capsule = 10 mg, By Mouth, Daily, # 30 capsule, 0 Refills, Maintenance, 06/16/24 5:58:00 PM EDT, Capsule, Partial fill upon patient request if the prescription is for a schedule II opioid drug. Start Date: 06/16/24 Status: Ordered Quantity: 30.0 Unit: capsule Repeat number: 1 Vitamin D3 1000 intl units oral capsule 1 capsule = 25 mcg, By Mouth, Daily, 0 Refills, Maintenance, 11/15/21 7:46:00 AM EST, Partial fill upon patient request if the prescription is for a schedule II opioid drug. Start Date: 11/15/21 Status: Ordered Repeat number: 1 Wellbutrin XL 300 mg/24 hours oral tablet, extended release 1 tablet = 300 mg, By Mouth, Daily, # 30 tablet, 0 Refills, Maintenance, 01/07/24 9:06:00 AM EDT, ERTablet, Partial fill upon patient request if the prescription is for a schedule II opioid drug. Start Date: 01/07/24 Status: Ordered Quantity: 30.0 Unit: tablet Repeat number: 1 Problem List Condition Confirmation Course Effective Dates Status Health St atus Informant Abdominal pain Confirmed Active Anxiety Confirmed Active Asthma Confirmed Active Occipital neuralgia Confirmed Active Chronic fatigue syndrome Confirmed Active Constipation Confirmed Active Cyst of vulva Confirmed Active Depression Confirmed Active Dyslipidemia Confirmed Active Fibromyalgia Confirmed Active GERD without esophagitis Confirmed Active Abdominal pain, lower Confirmed Active Migraine Confirmed Active Migraines Confirmed Active Prolapse of female pelvic organs Confirmed Active Severe obesity (BMI 35.0-39.9) with comorbidity Confirmed Active History of tobacco use Confirmed Active Tubular adenoma of colon 1 Confirmed 01/09/15 Active Fibroid uterus Confirmed Active Vertigo Confirmed Active 1repeat colonoscopy in 5 years Social History Social History Type Response Smoking Status Former smoker, quit more than 30 days ago; Type: Cigarettes; Tobacco use times per day: Previously smoked 2 packs per day; Quit smoking March 2017; Number of years: 16; Total pack years: 32; Started at age: 26; Stopped at age: 42; entered on: 12/24/18 Sex Female Sex Representation Female (finding) Patient Care team information Care Team Personnel Name: Fransisca Kelly RN Position: [facility] RN Member Role: Primary Care Nurse Name: Leana Billingsley Position: [facility] Outreach Member Role: Lifetime Consulting Physician Name: Valerie Rios NP Position: Reference Physician Member Role: PCP Address: [address] [place] [id number] Telecom: Care Team Related Persons Name: YRN NATHAN Name: KEATON SCHWARTZ Name: JASON ADAME Name: MACY KUNZ Insurance Providers Guarantor name: HUNTERMOHINDER HUNTLINDA SOTO Health Plan Information #: 1 Payer: MEDICARE B Payer Identifier: NA Member Number: [id number] Group Number: NA Subscriber Identifier: [id number] Relationship to Subscriber: self Coverage Type: NA Coverage Verification Date: NA Telecom: NA Address: [facility] Plan Information #: 2 Payer: [employer] Payer Identifier: HANNA Member Number: [id number] Group Number: HANNA Subscriber Identifier: [id number] Relationship to Subscriber: self Coverage Type: MEDICAID Coverage Verification Date: HANNA Telecom: NA Address:
[2025-03-17 17:32] LABS: MANUAL DIFF FLAG NO
[2025-03-17 17:36] LABS: Basophils Percent Auto 0.4 % (0-2); Eosinophils Absolute Auto 0.1 X10*3/uL (0.0-0.4); Eosinophils Percent Auto 1.8 % (0-4); Hematocrit 44.4 % (37.0-47.0); Hemoglobin 14.6 g/dl (12.0-16.0); Imm Gran Abs Auto 0.03 X10*3/uL (0.00-0.03); Imm Gran Pct Auto 0.4 % (0.0-0.4); Lymphocytes Absolute Auto 2.7 X10*3/uL (1.2-4.9); Lymphocytes Percent Auto 33.3 % (20-40); Mean Corpuscular HGB Conc 32.9 g/dl (31.0-35.0); Mean Corpuscular Hemoglobin 26.7 pg (27.0-33.0); Mean Corpuscular Volume 81.2 fL (80.0-98.0); Monocytes Absolute Auto 0.5 X10*3/uL (0.1-1.2); Monocytes Percent Auto 5.8 % (2-11); Neutrophils Absolute Auto 4.7 x10*3/uL (2.0-8.3); Neutrophils Percent Auto 58.3 % (45-73); Platelet Count 298 X10*3/uL (160-400); Red Blood Count 5.47 X10*6/uL (4.20-5.50); Red Cell Distribution Width 13.2 % (11.0-16.0)
[2025-03-17 17:46] LABS: Estimated Average Glucose 103 mg/dL; Hemoglobin A1c % 5.2 % (<6.0)
[2025-03-17 17:51] LABS: Alanine Aminotransferase 20 U/L (0-31); Albumin Level 4.3 g/dL (3.5-5.0); Alkaline Phosphatase 104 U/L (39-117); Anion Gap 13 (12-20); Aspartate Amino Transferase 27 U/L (5-31); Bilirubin Total 0.4 mg/dL (0.0-1.0); Blood Urea Nitrogen 12 mg/dL (9-16); Calcium 9.4 mg/dL (8.4-10.2); Carbon Dioxide 24 mmol/L (22-29); Chloride 105 mmol/L (96-108); Cholesterol 155 mg/dL (<200); Estimated Glomerular Filt Rate > 60; Glucose Random 85 mg/dL (60-115); HDL Cholesterol 50 mg/dL (>40); Iron 98 mcg/dL (30-160); LDL Cholesterol Calculated 78 mg/dL (<100); Percent Iron Saturation 29 % (15-50); Potassium 3.9 mmol/L (3.3-5.1); Sodium 138 mmol/L (135-145); Total Iron Binding Capacity 343 mcg/dL (228-428); Total Protein 7.2 g/dL (6.5-8.0); Triglycerides 138 mg/dL (<150); Unsaturated Iron Binding 245 ug/dL
[2025-03-17 18:10] LABS: Ferritin 31 ng/mL (10-250); Insulin 11 uU/mL (2-29); TSH reflex Free T4 1.55 uIU/mL (0.32-4.0); Vitamin D 25-OH Total 42.9 ng/mL (>30)
[2025-03-17 18:21] LABS: Folate 6.4 ng/mL (> or = 4.0); Vitamin B12 569 pg/mL (200-900)
== END 2025-03-17 09:29 | disposition home or self-care (01) ==
LOC: HO.HKASLDS 09:28
PROVIDERS: Visit Provider Physician Assistant Surgical
DX: Z98.84 Bariatric surgery status (principal); Z13.220 Encounter for screening for lipoid disorders; Z13.1 Encounter for screening for diabetes mellitus; Z13.29 Encounter for screening for other suspected endocrine disorder; Z13.0 Encounter for screening for diseases of the blood and blood-forming organs and certain disorders involving the immune mechanism
CPT/HCPCS: 36415; 80053; 80061; 82306; 82607; 82728; 82746; 83036; 83525; 83540; 84443; 85025; 86140

== ENCOUNTER → 2025-09-19 09:00 | Outpatient (BNV) | payer MEDICARE, MEDICAID, SELFPAY | PROVIDERS: PCP Registered Nurse; Visit Provider Internal Medicine | DX: Z12.31 Encounter for screening mammogram for malignant neoplasm of breast (principal) | CPT/HCPCS: 77063; 77067 ==

== ENCOUNTER 2025-09-19 09:03 | Outpatient (REF) | payer MEDICARE, MEDICAID, SELFPAY ==
--- OUTSIDE RECORDS SUMMARY | 2025-09-19 09:39 | XMS_ITS | Encounter Summary ---
Author Organization [employer] Address [address] [place] [address] Care Team Providers Care Hotel Front Desk Clerk Name Role Phone Valerie Rios ASSISTANT TERMINAL MANAGER Primary Care Provider [phone] Reason for Visit * Reason Comments Med Refill Encounter Details Date Type Department Care Team ([facility] Contact Info) Description 01/20/2024 Refill [facility] [address] [place] [address] Fransico Pradhan FNP Anxiety and depression Social History Tobacco Use Types Packs/Day Years Used Date Smoking Tobacco: Former Cigarettes Passive Smoke Exposure: Current Smokeless Tobacco: Never Alcohol Use Standard Drinks/Week Comments Never 0 (1 standard drink = 0.6 oz pur e alcohol) Depression Answer Date Recorded Patient Health Questionnaire-9 Score 9 12/08/2023 Patient Health Questionnaire-9 Score 9 12/08/2023 Last PHQ-9: Questionnaire Data Not on file 0 12/08/2023 Housing Stability Answer Date Recorded What is your housing situation today? I have keith giraldo 07/15/[address] you li ve. Do you have problems with any of the following? None of the above 07/15/2023 Food Insecurity Answer Date Recorded Within the past 12 months, y ou worried that your food would run out before you got money to buy more: Never True 07/15/2023 Within the past 12 months,th e food you bought just didn't last and you didn't have enough money to get more: Never True Transportation Answer Date Recorded In the past 12 months, has l ack of transportation kept you from medical appts, meetings, work or from getting things needed for daily living? No 07/15/2023 Utilities Answer Date Recorded In the past 12 months, has t he electric, gas, oil or water company threatened to shut off services in your home? No 07/15/2023 Depression Answer Date Recorded Patient Health Questionnaire-2 Score 3 12/08/2023 Comments Unknown Sex and Gender Information Value Date Recorded Sex Assigned at Female 07/28/2022 10:21 AM EDT Legal Sex Female 10:21 AM EDT Gender Identity Female 07/28/2022 10:21 AM EDT Sexual Orientation Straight 07/28/2022 10 :21 AM EDT documented as of this encounter Plan of Treatment Upcoming Encounters Date Type Department Care Team (Late st Contact Info) Description 09/20/2025 11:15 AM EST Office Visit [facility] [address] [place] [address] Valerie Rios FNP [address] [place] [address] documented as of this encounter Visit Diagnoses Diagnosis Anxiety and depression documented in this encounter Additional Health Concerns Assessment Noted Time PHQ-9 Depression Total Score: 9 12/08/19 24 10:22 AM EDT documented as of this encounter Care Teams Hotel Front Desk Clerk Relationship Specialty Start Date End Date Valerie Rios FNP [address] [place] [address] PCP - General Family Medicine 06/26/21 documented as of this encounter
--- OUTSIDE RECORDS SUMMARY | 2025-09-19 09:39 | XMS_ITS | Data Portability ---
Author Organization [place] - [facility], Allergy Address [address] [address] Care Team Providers Care Assembler Insulator Name Role Phone AMNAJULITO Primary Care Provider Assessment Encounter Date Assessment Date Assessment LastModified by Organization Details LastModified Time 07/14/2025 07/14/2025 Otitis externa, right ear, fungal infection. The patient has a persistent fungal infection in the right ear. I cleaned the ear canal using a vacuum to remove creamy fungal debris. I explained that fungal infections can be recurrent and may require prolonged or repeated treatment. I prescribed clotrimazole solution, five drops three times daily for two weeks, with a refill provided for an additional round if symptoms persist. The prescription will be sent to the [facility]. I educated the patient on the use of a dilute solution of white vinegar and water to lower the acidity of the ear canal as a maintenance program once the infection is under control. I advised her to use the solution weekly or as needed to prevent recurrence. I explained that if symptoms persist after two weeks of treatment, she should return for further evaluation, as chronic fungal infections may require additional cleaning or management. I discussed the potential causes of recurrent fungal infections, including immune system issues and anatomical factors such as ear canal shape and moisture retention. I emphasized the importance of consistent treatment and follow-up care. Procedure Documentation: - Vacuum cleaning of the right ear canal to remove creamy fungal debris. [email or web address] Not available 07/14/2025 14:28:28 08/18/2025 08/18/2025 Assessment: - Persistent fungal infection, right ear. - Status post clotrimazole treatment, one month. Plan: The patient is advised to continue treatment for the fungal infection. She may use diluted vinegar drops (equal parts white vinegar and water) consistently, as this has previously provided relief. Alternatively, clotrimazole drops will be prescribed again, with instructions for five drops three times daily. The patient is counseled to choose one treatment method and avoid combining both on the same day. The provider explains that fungal infections take time to resolve, as the top layer of infected skin needs to shed. The patient is instructed to keep the ear dry and return for follow-up in two weeks, where the physician shipping and receiving assistant will assess progress and clean the ear if necessary. The provider discusses that itchiness is a symptom of the fungal infection and does not recommend anti-itch medications, as they may worsen the condition. The patient is informed that if symptoms persist at the next visit, additional treatment options, such as a dissolvable lotion, may be considered. [email or web address] Not available 08/18/2025 09:04:37 Plan of Treatment Reminders Order Date Submit Date Provider Last Modified By Organization Details Last Modified Time Details Appointments Establish ed 15 2024 09:15A MALCOLM MATUTE Not available Not available Not available Lab None recorded. Referral None recorded. Procedures None recorded. Surgeries None recorded. Imaging None recorded. Medication Orders clotrimaz ole 1 % topical solution 2024 025 [id number], [address], [place], [phone], 08/18/2025 09:04:19 clotrimaz ole 1 % topical solution 2024 025 [id number], [address], [place], [phone], 07/14/2025 14:26:56 Patient TargetsNo targets recorded. Patient Instructions Encounter Date Encounter Id Patient Instructions Last Modified By Organization Details Last Modified Time 07/14/2025 [id number] - Use clotrimazole solution, five drops three times daily for two weeks. - Repeat treatment for another two weeks if symptoms persist. - Use a dilute solution of white vinegar and water weekly or as needed for maintenance after the infection is under control. - Return for further evaluation if symptoms persist after two weeks of treatment. [email or web address] Not available 07/14/2025 14:27:34 Please note: Parts of this encounter note have been generated by AI based on audio conversation. Patient consent was required prior to utilizing this technology. Content review was required prior to finalizing the note. [email or web address] Not available 07/14/2025 14:27:34 08/18/2025 [id number] - Use diluted vinegar drops (equal parts white vinegar and water) consistently, or clotrimazole drops as prescribed. - Avoid combining both treatments on the same day. - Keep the ear dry. - Return for follow-up in two weeks. [email or web address] Not available 08/18/2025 09:04:37 Please note: Parts of this encounter note have been generated by AI based on audio conversation. Patient consent was required prior to utilizing this technology. Content review was required prior to finalizing the note. [email or web address] Not available 08/18/2025 09:04:37 Reason for Referral None Reported. Problems Name Problem SNOMED Code Status Onset Date Resolution Date Notes Provider Name and Address Organization Details Recorded Time Impacted cerumen in right ear 86884962545 28497 Active 2014 Impacted cerumen, right ear; Note: Date Diagnosed : 05/03/2015 10:44 AM (H61.21) Not Available [facility] 4 03:11:42 Dizziness and giddiness 345093245 Active 2014 Dizziness ; Note: Date Diagnosed : 05/03/2015 10:15 AM (780.4) Dizzine ss and giddiness ; Note: Date Diagnosed : 05/03/2015 10:44 AM (R42) [mapped from ICD9 code: 780.4] Not Available [facility] 4 03:11:43 Abnormal auditory perceptio n 05503485 Active 2014 Abnormal auditory perceptio n, unspecifi ed; Note: Date Diagnosed : 05/03/2015 10:44 AM (388.40) Other abnormal auditory perceptio ns, right ear; Note: Date Diagnosed : 05/03/2015 10:44 AM (H93.291) [mapped from ICD9 code: 388.40] Not Available [facility] 4 03:11:42 Impacted cerumen 47652952 Active 2014 Impacted cerumen; Note: Date Diagnosed : 05/03/2015 10:44 AM (380.4) Not Available [facility] 4 03:11:42 Bilateral tinnitus 35949929937 02 Active 2016 Tinnitus, bilateral ; Note: Date Diagnosed : 12/02/2016 2:06 PM (H93.13) Not Available [facility] 4 03:11:43 Migraine without aura, not refractor y 113687218 Active 2016 Migraine without aura, not intractab le, without status migrainos us; Note: Date Diagnosed : 02/09/2017 3:15 PM (G43.009) Not Available [facility] 4 03:11:43 Bilateral temporoma ndibular joint pain 22150172553 598201 Active 2016 Arthralgi a of bilateral temporoma ndibular joint; Note: Date Diagnosed : 02/09/2017 3:16 PM (M26.623) Not Available [facility] 4 03:11:43 Itching of skin 884533260 Active 2020 Pruritus, unspecifi ed; Note: Date Diagnosed : 01/31/2021 12:24 PM (L29.9) Not Available [facility] 4 03:11:42 Infective otitis externa of right ear 03987526802 12276 Active 2022 Other infective otitis externa, right ear; Note: Date Diagnosed : 01/07/2023 11:00 AM (H60.391) Not Available [facility] hospital 4 03:11:43 Otomycosi s 00413150 Active 2024 MELANIE ROY MD [address] [place] [address], [facility] [place], [address] , [facility] - [facility] 5 14:25:55 Problem Notes None recorded. Medical Equipment None Reported. Allergies No known drug allergies Medications Name Sig Start Date Stop Date Status Note LastModified by Organization Details LastModified Time tretinoin 0.1 % topical cream APPLY TOPICALL Y TO THE AFFECTED AREA(S) EVERY DAY AT BEDTIME DIRECTED active Not Available Not Available No t Available neomycin- polymyxin -hydrocor t 3.5 mg/mL-10, 000 unit/mL-1 % ear solution INSTILL 3 DROPS TO RIGHT EAR FOUR TIMES DAILY FOR 10 DAYS 07/12 completed Not Available Not Available Not Available clonidine HCl 0.1 mg tablet TAKE 1 TABLET BY MOUTH DAILY AT BEDTIME. active Not Available Not Available No t Available naltrexon e 50 mg tablet active Not Available Not Available Not Available prednison e 20 mg tablet 07/14 completed Not Available Not Available Not Available clonazepa m 0.5 mg tablet active Not Available Not Available Not Available hydrocort isone-ambika tic acid 1 %-2 % ear drops INSTILL 3 DROPS INTO EACH EAR TWICE DAILY. active Not Available Not Available No t Available clotrimaz ole 1 % topical solution APPLY 5 DROPS TOPICALL Y TO AFFECTED EAR THREE TIMES DAILY FOR 2 WEEKS active Not Available Not Available No t Available Proventil HFA 90 mcg/actua tion aerosol inhaler 2014 active Medicati on ID: [id number] Br and Name: Proventi l HFA Send Method: E-Prescr ibed Sub s Allowed: subs OK Medic ationGen ericName : Proventi l HFA Not Available Not Available Not Available furosemid e 20 mg tablet 2017 active Medicati on ID: [id number] D uration Value: 88 Brand Name: furosemi de Send Method: E-Prescr ibed Sub s Allowed: subs OK Speci al Instruct ion: TK 1 T PO 3 DAYS PER WEEK DIRECTED Medicat ionGener icName: furosemi de Not Available Not Available Not Available amoxicill in 875 mg-potass ium clavulana te 125 mg tablet TAKE 1 TABLET BY MOUTH TWICE DAILY FOR 7 DAYS WITH FOOD OR MILK 07/12 completed Not Available Not Available Not Available dextroamp hetamine- amphetami ne ER 25 mg 24hr capsule,e xtend release 2017 active Medicati on ID: [id number] D uration Value: 30 Brand Name: dextroam phetamin e-amphet amine Se nd Method: E-Prescr ibed Sub s Allowed: subs OK Speci al Instruct ion: TK ONE C PO QAM Medi cationGe nericNam e: dextroam phetamin e-amphet amine Not Available Not Available Not Available cyclobenz aprine 5 mg tablet active Not Available Not Available No t Available rosuvasta tin 10 mg tablet TAKE 1 TABLET BY MOUTH EVERY DAY active Not Available Not Available No t Available Wellbutri n XL 300 mg 24 hr tablet, extended release active Not Available Not Available Not Available duloxetin e 60 mg capsule,d elayed release 2017 active Medicati on ID: [id number] D uration Value: 30 Brand Name: duloxeti ne Send Method: E-Prescr ibed Sub s Allowed: subs OK Medic ationGen ericName : duloxeti ne Not Available Not Available Not Available cholecalc iferol (vitamin D3) 250 mcg (10,000 unit) capsule TAKE 1 CAPSULE BY MOUTH EVERY WEEK active Not Available Not Available No t Available fluocinol one acetonide oil 0.01 % ear drops Instill 2 drop into both ears twice a week as directed 2023 active Medicati on ID: [id number] B rand Name: fluocino lone acetonid e oil Send Method: E-Prescr ibed Sub s Allowed: subs OK Medic ationGen ericName : fluocino lone acetonid e oil Not Available Not Available Not Available budesonid e-formote rol HFA 80 mcg-4.5 mcg/actua tion aerosol inhaler INHALE 2 PUFFS BY MOUTH IN THE MORNING AND AT BEDTIME active Not Available Not Available No t Available sodium,po tassium,m ag sulfates 17.5 gram-3.13 gram-1.6 gram oral soln SEE COLONOSC OPY INSTRUCT IONS active Not Available Not Available No t Available Fioricet 50 mg-300 mg-40 mg capsule 2014 active Medicati on ID: [id number] Br and Name: Fioricet Send Method: E-Prescr ibed Sub s Allowed: subs OK Medic ationGen ericName : Fioricet Not Available Not Available Not Available BinaxNOW COVID-19 Ag Self Test kit TEST DIRECTED TODAY 07/14 completed Not Available Not Available Not Available Zepbound 5 mg/0.5 mL subcutane ous pen injector ADMINIST ER 5 MG UNDER THE SKIN 1 TIME EVERY WEEK active Not Available Not Available No t Available Zepbound 2.5 mg/0.5 mL subcutane ous pen injector ADMINIST ER 2.5 MG UNDER THE SKIN 1 TIME EVERY WEEK active Not Available Not Available No t Available Vitals Date Recorded Body height Body mass index (BMI) Body weight Provider Name and Address Organization Details Last Updated DateTime 07/14/2025 154.94 cm 31.2 kg/m2 41205.74 g BRYAN COMI [place] - [facility] 07/14/2025 14:14:22 Date Recorded Body height Provider Name an d Address Organization Details Last Updated DateTime 08/18/2025 154.94 cm [facility] [place] - [facility] 08/18/2025 08:54:45 Social History None recorded. Functional Status None recorded. Mental Status None recorded. Family History Nothing Reported. Medical History No medical history recorded. Gynecological HistoryNo gynecological history recorded. Obstetrics History GPAL:G 0 P 0 0 0 0 Past Encounters Encounter ID Performer Location Encounter Start Date Encounter Closed Date Diagnosis/Indication Diagnosis SNOMED-CT Code Diagnosis ICD10 Code Diagnosis IMO Codes Diagnosis Note [id number] MELANIE ROY MD [facility] [address] [address] 07/14/2025 13:47:51 07/14/2025 14:28:55 Otomycosis 46144750 B36.9 H62.40 [id number] MELANIE ROY MD [facility] [address] [address] 08/18/2025 08:41:28 08/18/2025 09:07:10 Otomycosis 20802013 B36.9 H62.40 444912 Health Concerns Section Related Observation LastModified by Organization Detai ls LastModified Time None Recorded Concern Status LastModified by Organization Details LastModified Time None Recorded Advance Directives Directive None Recorded Payers Insurance Date Sequence Insurance Name Policy Number Policy Bobby Covered Member ID Bobby Member ID Guarantor Name 09/11/2025 2 [place] [facility] Dominique Zazueta Agront Anders [id number] Dominique Zazueta [employer] 09/11/2025 1 [place] [facility] Dominique Carlita Agront [id number] Dominique Ortiz Notes Date Note Type Note Provider Name and Address Organization Details Recorded Time 07/14/2025 text/html itchy ears PV 12/29/23 [facility] fungal OE, rx clotrimazole Dominique Ortiz is a 50-year-old female who presents for right ear symptoms. She reports a persistent fungal infection in her right ear that has not resolved despite previous treatments with antifungal drops prescribed approximately a year and a half ago and hydrocortisone drops provided by her primary care physician. She describes her symptoms as very itchy and notes the presence of white debris in the ear canal. She denies any drainage from the ear and states that her hearing remains unaffected. She occasionally uses Q-tips to scratch her ears and has no history of ear surgery. She denies swimming or excessive moisture exposure in her ears. Her medical history includes fibromyalgia, asthma, chronic fatigue syndrome, and hypersomnia. MELANIE ROY MD [address] [place] [address], [phone], [facility] 07/14/2025 14:28:31 08/18/2025 text/html Right fungal OE PV 12/29/23 [facility] fungal OE, rx clotrimazole PV 07/14/25 [facility], right fingal OE, rx clotrimazole and f/u for repeat debridement Dominique Ortiz is a 50-year-old female who presents for persistent fungal infection in the ears. She reports ongoing itchiness and white discharge, which she attributes to the fungal infection. She previously used clotrimazole drops for one month without improvement and also tried a diluted vinegar solution, which provided temporary relief before symptoms returned. On examination, the infection appears improved compared to the last visit, with less debris present in the ear. The provider notes residual infection in the top layer of the skin, which has not yet shed. The patient expresses concern about itchiness disrupting her sleep and inquires about treatment options for this symptom. MELANIE ROY MD [address] [place] [address], [phone], [facility] 08/18/2025 09:05:44 OBGyn Episode No OBEpisode recorded.
--- OUTSIDE RECORDS SUMMARY | 2025-09-19 09:39 | XMS_ITS | Encounter Summary ---
Author Organization [employer] Address [address] [facility] 7 [place] [address] Care Team Providers Care Women'S Soccer Coach Name Role Phone [facility] Primary Care Provider [phone] Reason for Visit * Reason Onset Date Comments Med Refill 08/01/2025 Encounter Details Date Type Department Care Team ([facility] st Contact Info) Description 08/01/2025 Refill [facility] [address] [place], [place] [phone] [place] [facility] [address] [place] [address] Social History Tobacco Use Types Packs/Day Years Used Date Smoking Tobacco: Former Cigarettes Passive Smoke Exposure: Current Smokeless Tobacco: Never Alcohol Use Standard Drinks/Week Comments Never 0 (1 standard drink = 0.6 oz pur e alcohol) Depression Answer Date Recorded Patient Health Questionnaire-9 Score 14 01/04/2025 Patient Health Questionnaire-9 Score 14 01/04/2025 Last PHQ-9: Questionnaire Data Not on file 0 01/04/2025 Housing Stability Answer Date Recorded What is [...] to shut off services in your home? Yes 12/27/2024 Depression Answer Date Recorded Patient Health Questionnaire-2 Score 3 01/04/2025 Internet Access Answer Date Recorded Internet Access Q1 Yes 12/27/2024 Internet Access Q2 Not on file 12/27/2024 Comments No Sex and Gender Information Value Date Recorded Sex Assigned at Female 07/28/2022 10:21 AM EDT Legal Sex Female 10:21 AM EDT Gender Identity Female 07/28/2022 10:21 AM EDT Sexual Orientation Straight 07/28/2022 10 :21 AM EDT documented as of this encounter Plan of Treatment Upcoming Encounters Date Type Department Care Team (Late st Contact Info) Description 09/20/2025 11:15 AM EST Office Visit [facility] [address] [place] [address] Valerie Rios FNP [address] [place] [address] documented as of this encounter Visit Diagnoses Not on filedocumented in this encounter Additional Health Concerns Assessment Noted Time PHQ-9 Depression Total Score: 14 025 3:03 PM EDT documented as of this encounter Care Teams Women'S Soccer Coach Relationship Specialty Start Date End Date Valerie Rios FNP [address] [place] [address] PCP - General Family Medicine 06/26/21 documented as of this encounter
--- OUTSIDE RECORDS SUMMARY | 2025-09-19 09:39 | XMS_ITS | Continuity of Care Document ---
Author Organization [place] - [facility], [facility] Address [address] [place] [address] Care Team Providers Care Manager Regulatory Name Role Phone JULITO WOO Primary Care Provider Assessment Encounter Date Assessment Date Assessment LastModified by Organization Details LastModified Time 08/18/2025 08/18/2025 Assessment: - Persistent fungal infection, [...] follow-up in two weeks, where the physician reading assistant will assess progress and clean the [...] ole 1 % topical solution 2024 025 [facility], [address], [place], [phone], 08/18/2025 09:04:19 Patient TargetsNo targets recorded. Patient Instructions Encounter Date Encounter Id Patient Instructions Last Modified By Organization Details Last Modified Time 08/18/2025 [id number] - Use diluted vinegar drops (equal parts [...] Recorded Time Impacted cerumen in right ear 11119849648 65306 Active 2014 Impacted cerumen, right ear; Note: Date Diagnosed : 05/03/2015 10:44 AM (H61.21) Not Available [facility] 4 03:11:42 Dizziness and giddiness 040118504 Active 2014 Dizziness ; Note: Date Diagnosed : 05/03/2015 10:15 AM (780.4) Dizzine ss and giddiness ; Note: Date Diagnosed : 05/03/2015 10:44 AM (R42) [mapped from ICD9 code: 780.4] Not Available [facility] 4 03:11:43 Abnormal auditory perceptio n 82167610 Active 2014 Abnormal auditory perceptio n, unspecifi ed; Note: Date Diagnosed : 05/03/2015 10:44 AM (388.40) Other abnormal auditory perceptio ns, right ear; Note: Date Diagnosed : 05/03/2015 10:44 AM (H93.291) [mapped from ICD9 code: 388.40] Not Available [facility] 4 03:11:42 Impacted cerumen 18183025 Active 2014 Impacted cerumen; Note: Date Diagnosed : 05/03/2015 10:44 AM (380.4) Not Available [facility] 4 03:11:42 Bilateral tinnitus 08189761136 02 Active 2016 Tinnitus, bilateral ; Note: Date Diagnosed : 12/02/2016 2:06 PM (H93.13) Not Available [facility] 4 03:11:43 Migraine without aura, not refractor y 732017733 Active 2016 Migraine without aura, not intractab le, without status migrainos us; Note: Date Diagnosed : 02/09/2017 3:15 PM (G43.009) Not Available [facility] 4 03:11:43 Bilateral temporoma ndibular joint pain 31228660409 785084 Active 2016 Arthralgi a of bilateral temporoma ndibular joint; Note: Date Diagnosed : 02/09/2017 3:16 PM (M26.623) Not Available [facility] 4 03:11:43 Itching of skin 990600553 Active 2020 Pruritus, unspecifi ed; Note: Date Diagnosed : 01/31/2021 12:24 PM (L29.9) Not Available [facility] 4 03:11:42 Infective otitis externa of right ear 71386434924 33328 Active 2022 Other infective otitis externa, right ear; Note: Date Diagnosed : 01/07/2023 11:00 AM (H60.391) Not Available [facility] 4 03:11:43 Otomycosi s 93086885 Active 2024 MELANIE ROY MD [address] [place] [address], [place], [address] , [facility] - [facility] 5 14:25:55 Problem Notes None recorded. Medical [...] aerosol inhaler 2014 active Medicati on ID: [id number] Br and Name: Proventi l HFA Send Method: E-Prescr ibed Sub s Allowed: subs OK Medic ationGen ericName : Proventi l HFA Not Available Not Available Not Available furosemid e 20 mg tablet 2017 active Medicati on ID: [id number] D uration Value: 88 Brand Name: furosemi [...] xtend release 2017 active Medicati on ID: [id number] D uration Value: 30 Brand Name: dextroam [...] elayed release 2017 active Medicati on ID: [id number] D uration Value: 30 Brand Name: duloxeti [...] as directed 2023 active Medicati on ID: [id number] B rand Name: fluocino lone acetonid e [...] mg capsule 2014 active Medicati on ID: [id number] Br and Name: Fioricet Send Method: E-Prescr [...] t Available Vitals Date Recorded Body height Provider Name an d Address Organization Details Last Updated DateTime 08/18/2025 154.94 cm BRYAN SHAIKH [place] - [facility] 08/18/2025 08:54:45 Social History None recorded. Functional Status None recorded. Mental Status None recorded. Family History Nothing Reported. Medical History No medical history recorded. Gynecological HistoryNo gynecological history recorded. Obstetrics History GPAL:G 0 P 0 0 0 0 Past Encounters Encounter ID Performer Location Encounter Start Date Encounter Closed Date Diagnosis/Indication Diagnosis SNOMED-CT Code Diagnosis ICD10 Code Diagnosis IMO Codes Diagnosis Note [id number] MELANIE ROY MD [facility] [address] [address] 08/18/2025 08:41:28 08/18/2025 09:07:10 Otomycosis 82713292 B36.9 H62.40 208150 Health Concerns Section Related Observation LastModified by Organization Detai ls LastModified Time None Recorded Concern Status LastModified by Organization Details LastModified Time None Recorded Payers Encounter Date Sequence Insurance Name Policy Number Policy Bobby Covered Member ID Bobby Member ID Guarantor Name 08/18/2025 2 [place] [facility] Dominique Ortiz Anders [id number] Dominique Zazueta Agront 08/18/2025 1 [place] [facility] Dominique Fernandeznt [id number] Dominique Ortiz Notes Date Note Type Note Provider Name and Address Organization Details Recorded Time 08/18/2025 text/html Right fungal OE PV 12/29/23 [facility] fungal OE, rx clotrimazole PV 07/14/25 Noel, right fingal OE, rx clotrimazole and f/u [...] options for this symptom. MELANIE ROY MD [address] [place] [address], [place], [address], [facility] - [facility] 08/18/2025 09:05:44 OBGyn Episode No OBEpisode recorded.
--- OUTSIDE RECORDS SUMMARY | 2025-09-19 09:40 | XMS_ITS | Encounter Summary ---
Author Organization [employer] Address [address] [facility] 7t [place] [address] Care Team Providers Care Cupboard Builder Name Role Phone Valerie Rios BEEF KILLER Primary Care Provider [phone] Encounter Details Date Type Department Care Team ([facility] st Contact Info) Description 08/14/2023 Abstract [facility] [address] [place] [address] Leana Billingsley Social History Tobacco Use Types Packs/Day Years Used Date Smoking Tobacco: Former Cigarettes Smokeless Tobacco: Never Alcohol Use Standard Drinks/Week Comments Never 0 (1 standard drink = 0.6 oz pur e alcohol) Depression Answer Date Recorded Patient Health Questionnaire-9 Score 0 06/15/2023 Housing Stability Answer Date Recorded What is [...] Answer Date Recorded Patient Health Questionnaire-2 Score 0 06/15/2023 Comments Unknown Sex and Gender Information Value [...] Description 09/20/2025 11:15 AM EST Office Visit [facility] [address] [place] [address] Valerie Rios FNP [address] [place], [place] [phone] documented as of this encounter Procedures Procedure Name Priority Date/Time Associated Diagnosis Comments COLONOSCOPY Routine 07/31/2020 documented in this encounter Results * Colonoscopy (07/31/2020) Colonoscopy Normal Normal Narrative Leana Billingsley - 07/31/2020 Repeat in 5 years us Historical Provider HEALTH MAINTENANCE Final Result documented in this encounter Visit Diagnoses Not on filedocumented in this encounter Additional Health Concerns Assessment Noted Time PHQ-9 Depression Total Score: 0 06/15/20 23 9:47 AM EDT documented as of this encounter Care Teams Cupboard Builder Relationship Specialty Start Date End Date Valerie Rios FNP [address] [place] [address] PCP - General Family Medicine 06/26/21 documented as of this encounter
--- OUTSIDE RECORDS SUMMARY | 2025-09-19 09:40 | XMS_ITS | Encounter Summary ---
Author Organization [employer] Address [address] [facility] 7 [place] [address] Care Team Providers Care Mandrel Press Hand Name Role Phone Valerie Rios Primary Care Provider [phone] Reason for Visit * Reason Comments Med Refill Encounter Details Date Type Department Care Team (Late st Contact Info) Description 12/15/2022 Refill [facility] [address] [place] [address] [phone] Name, MD Chong [address] [place], [place] [phone] Mild intermittent asthma without complication Social History Tobacco Use Types Packs/Day Years Used Date Smoking Tobacco: Former Cigarettes Smokeless Tobacco: Never Alcohol Use Standard Drinks/Week Comments Never 0 (1 standard drink = 0.6 oz pur e alcohol) PHQ-2 Answer Date Recorded Patient Health Questionnaire-2 Score 0 12/11/2022 Comments Unknown Sex and Gender Information Value Date Recorded Sex Assigned at Female 07/28/2022 10:21 AM EDT Legal Sex Female 10:21 AM EDT Gender Identity Female 07/28/2022 10:21 AM EDT Sexual Orientation Straight 07/28/2022 10 :21 AM EDT COVID-19 Exposure Response Date Recorded In the last 10 days, have yo u been in contact with someone who was confirmed or suspected to have Coronavirus/COVID-19? No / Unsure 12/11/2022 1:29 PM EDT documented as of this encounter Plan of Treatment Upcoming Encounters Date Type Department Care Team (Late st Contact Info) Description 09/20/2025 11:15 AM EST Office Visit [facility] [address] [place] [phone] Valerie Rios FNP [address] [place] [address] documented as of this encounter Visit Diagnoses Diagnosis Mild intermittent asthma without complication documented in this encounter Additional Health Concerns Assessment Noted Time PHQ-9 Depression Total Score: 8 10/07/19 23 1:26 PM EST documented as of this encounter Care Teams Mandrel Press Hand Relationship Specialty Start Date End Date Valerie Rios FNP [address] [place] [address] PCP - General Family Medicine 06/26/21 documented as of this encounter
--- OUTSIDE RECORDS SUMMARY | 2025-09-19 09:40 | XMS_ITS | Encounter Summary ---
Author Organization [facility] Address [address] [place] [address] Care Team Providers Care Inside Channel Account Manager Name Role Phone Lorne Fransico ALEJANDRO Primary Care Provider [phone] Encounter Details Date Type Department Care Team (Late st Contact Info) Description 10/21/2024 Lab Requisition [facility] - Main Lab [address] [facility] [place] [address] Michel Moreno PA [address] [place] [address] Urinary tract infection, site not specified Social History Tobacco Use Types Packs/Day Years Used Date Smoking Tobacco: Former Cigarettes 8.4 S tarted: 04/16/2017 Smokeless Tobacco: Never Alcohol Use Standard Drinks/Week Comments No 0 (1 standard drink = 0.6 oz pur e alcohol) Comments Unknown Sex and Gender Information Value Date Recorded Sex Assigned at Not on file Legal Sex Female 9:32 AM EST Gender Identity Not on file Sexual Orientation Not on file documented as of this encounter Plan of Treatment Not on file documented as of this encounter Procedures Procedure Name Priority Date/Time Associated Diagnosis Comments CULTURE URINE Routine 10/21/2024 2:45 PM EST Urinary tract infection, site not specified documented in this encounter Results * Culture urine (10/21/2024 2:45 PM EST) Culture, Urine No growth 10/22/2024 1:45 PM EST [facility] Urine Urine specimen obtained by clean catch procedure / Unknown 10/21/2024 2:45 PM EST 10/21/2024 6:51 PM EST us Michel [facility] MICROBIOLOGY - GENERAL ORD ERABLES Final Result [facility] ([facility] [address] [place] [address], documented in this encounter Visit Diagnoses Diagnosis Urinary tract infection, site not specified documented in this encounter Care Teams Inside Channel Account Manager Relationship Specialty Start Date End Date Fransico Pradhan NP [address] [place] [address] PCP - General Internal Medicine 03/13/21 documented as of this encounter
--- OUTSIDE RECORDS SUMMARY | 2025-09-19 09:40 | XMS_ITS | Encounter Summary ---
Author Organization [employer] Address [address] [facility] [address] [place] [address] Care Team Providers Care Nc Machinist Name Role Phone [facility] Primary Care Provider [phone] Reason for Visit * Reason Onset Date Comments Medication Question 11/09/2023 Encounter Details Date Type Department Care Team ([facility] st Contact Info) Description 11/09/2023 Refill [facility] [address] [place], [place] [phone] [facility] [address] [place] [address] CFS (chronic fatigue syndrome) Social History Tobacco Use Types Packs/Day Years Used Date Smoking Tobacco: Former Cigarettes Passive Smoke Exposure: Current Smokeless Tobacco: Never Alcohol Use Standard Drinks/Week Comments Never 0 (1 standard drink = 0.6 oz pur e alcohol) Depression Answer Date Recorded Patient Health Questionnaire-9 Score 9 10/15/2023 Patient Health Questionnaire-9 Score 9 10/15/2023 Last PHQ-9: Questionnaire Data Not on file 0 10/15/2023 Housing Stability Answer Date Recorded What is your housing situation today? I have keithanuj giraldo 07/15/[address] you [...] Answer Date Recorded Patient Health Questionnaire-2 Score 4 10/15/2023 Comments Unknown Sex and Gender Information Value Date Recorded Sex Assigned at Female 07/28/2022 10:21 AM EDT Legal Sex Female 10:21 AM EDT Gender Identity Female 07/28/2022 10:21 AM EDT Sexual Orientation Straight 07/28/2022 10 :21 AM EDT documented as of this encounter Miscellaneous Notes * Telephone Encounter - Valery Bailey RN - 11/09/2023 4:40 PM EST Pended per pt.'s request * Telephone Encounter - Beba Frederick - 11/09/2023 4:23 PM EST Tc from pt requesting status on medication requested on 11/06/23 through my chart for Naproxen. Please contact pt @ [phone] documented in this encounter Plan of Treatment Upcoming Encounters Date Type Department Care Team (Late st Contact Info) Description 09/20/2025 11:15 AM EST Office Visit [facility] [address] [place] [address] Valerie Rios FNP [address] [place] [address] documented as of this encounter Visit Diagnoses Diagnosis CFS (chronic fatigue syndrome) Chronic fatigue syndrome documented in this encounter Additional Health Concerns Assessment Noted Time PHQ-9 Depression Total Score: 9 10/15/19 24 1:32 PM EST documented as of this encounter Care Teams Nc Machinist Relationship Specialty Start Date End Date Valerie Rios FNP [address] [place] [address] PCP - General Family Medicine 06/26/21 documented as of this encounter
--- OUTSIDE RECORDS SUMMARY | 2025-09-19 09:40 | XMS_ITS | Encounter Summary ---
Author Organization [employer] Address [address] [facility] 7t [place] [address] Care Team Providers Care Search Engine Optimizer Name Role Phone Valerie Rios PHOTOVOLTAIC INSTALLER Primary Care Provider [phone] Encounter Details Date Type Department Care Team ([facility] st Contact Info) Description 10/09/2024 Orders Only [facility] [address] [place] [address] Provider, MD Corazon Social History Tobacco Use Types Packs/Day Years Used Date Smoking Tobacco: Former Cigarettes Passive Smoke Exposure: Current Smokeless Tobacco: Never Alcohol Use Standard Drinks/Week Comments Never 0 (1 standard drink = 0.6 oz pur e alcohol) Depression Answer Date Recorded Patient Health Questionnaire-9 Score 4 04/05/2024 Patient Health Questionnaire-9 Score 4 04/05/2024 Last PHQ-9: Questionnaire Data Not on file 0 04/05/2024 Housing Stability Answer Date Recorded What is [...] Date Recorded Patient Health Questionnaire-2 Score 0 04/05/2024 Comments Unknown Sex and Gender Information Value [...] Description 09/20/2025 11:15 AM EST Office Visit [facility] [address] [place] [address] Valerie Rios FNP [address] [place] [address] documented as of this encounter Procedures Procedure Name Priority Date/Time Associated Diagnosis Comments HM PAP/HPV Routine 12/05/2021 6:10 PM EST documented in this encounter Results * HM PAP/HPV (12/05/2021 6:10 PM EST) us Historical Provider HEALTH MAINTENANCE Final Result documented in this encounter Visit Diagnoses Not on filedocumented in this encounter Additional Health Concerns Assessment Noted Time PHQ-9 Depression Total Score: 4 04/05/20 24 11:22 AM EDT documented as of this encounter Care Teams Search Engine Optimizer Relationship Specialty Start Date End Date Valerie Rios FNP [address] [place] [address] PCP - General Family Medicine 06/26/21 documented as of this encounter
--- OUTSIDE RECORDS SUMMARY | 2025-09-19 09:40 | XMS_ITS | Encounter Summary ---
Author Organization [employer] Address [address] [place] [address] [address], [place] [address] Care Team Providers Care Rug Washer Name Role Phone [place] [facility] Primary Care Provider [phone] Reason for Visit * Reason Onset Date Comments calling back 12/23/2022 Encounter Details Date Type Department Care Team ([facility] Contact Info) Description 12/23/2022 Telephone [facility] [address] [place], [place] [phone] [place] [facility] [address] [place] [address] calling back Social History Tobacco Use Types Packs/Day Years [...] PM EDT documented as of this encounter Miscellaneous Notes * Telephone Encounter - Dominga Alfonso - 12/23/2022 3:59 PM EDT Letter has been completed and patient has picked up a copy today. * Telephone Encounter - Beba Frederick - 12/23/2022 10:59 AM EDT Tc from pt returning phone call. Converter Operator does not see a call. Pt is also requesting status on the letter she needs from provider regarding [facility]. Please contact pt at [phone] documented in this encounter Plan of Treatment Upcoming Encounters Date Type Department Care Team (Late st Contact Info) Description 09/20/2025 11:15 AM EST Office Visit [facility] [address] [place] [address] Valerie Rios FNP [address] [place] [address] documented as of this encounter Visit Diagnoses Not on filedocumented in this encounter Additional Health Concerns Assessment Noted Time PHQ-9 Depression Total Score: 8 10/07/19 23 1:26 PM EST documented as of this encounter Care Teams Rug Washer Relationship Specialty Start Date End Date Valerie Rios FNP [address] [place] [address] PCP - General Family Medicine 06/26/21 documented as of this encounter
--- OUTSIDE RECORDS SUMMARY | 2025-09-19 09:40 | XMS_ITS | Encounter Summary ---
Author Organization [employer] Address [address] [facility] [place] [address] Care Team Providers Care Property Condition Assessor Name Role Phone Valeire Rios Primary Care Provider [phone] Reason for Referral * Consultation (Routine) - Closed Specialty Diagnoses / Procedures Referred By Leonid beasley Referred To Contact Neurology Diagnoses Memory loss of unknown cause Valerie Rios FNP [address] [place] [address] Phone: tel: fax: [facility] [address] [facility] [address] [place] [address] Phone: tel: fax: Referral ID Status Reason Start Date Expiration Date V isits Requested Visits Authorized [id number] Closed Specialty Services Required 08/21/2025 08/21/2026 1 1 Encounter Details Date Type Department Care Team (Late st Contact Info) Description 08/21/2025 Orders Only [facility] [address] [place], [place] [phone] Valerie Rios FNP [address] [place], [place] [phone] Memory loss of unknown cause (Primary Dx) Social History Tobacco Use Types Packs/Day Years [...] Description 09/20/2025 11:15 AM EST Office Visit [facility] [address] [place] [address] [facility] [address] [place] [address] Scheduled Referrals Name Type Priority Associated Diagnoses Orde r Schedule Referral to Neurology Outpatient Referral Routine Memory loss of unknown cause Expected: 08/21/2025 (Approximate), Expires: 08/21/2026 documented as of this encounter Visit Diagnoses Diagnosis Memory loss of unknown cause- Primary Memory loss documented in this encounter Additional Health Concerns Assessment Noted Time PHQ-9 Depression Total Score: 14 025 3:03 PM EDT documented as of this encounter Care Teams Property Condition Assessor Relationship Specialty Start Date End Date Valerie Rios FNP [address] [place] [address] PCP - General Family Medicine 06/26/21 documented as of this encounter
--- OUTSIDE RECORDS SUMMARY | 2025-09-19 09:40 | XMS_ITS | Encounter Summary ---
Author Organization [employer] Address [address] [facility] 7 [place] [address] Care Team Providers Care Mixing Operator Name Role Phone Valerie Rios LINING CEMENTER Primary Care Provider [phone] Reason for Visit * Reason Onset Date Comments Med Refill 11/06/2023 Encounter Details Date Type Department Care Team ([facility] st Contact Info) Description 11/06/2023 Refill [facility] [address] [place] [address] Fransico Pradhan FNP Anxiety and depression Social [...] Description 09/20/2025 11:15 AM EST Office Visit [facility] [address] [place] [address] Valerie Rios FNP [address] [place] [address] documented as of this encounter Visit Diagnoses Diagnosis Anxiety and depression documented in this encounter Additional Health Concerns Assessment Noted Time PHQ-9 Depression Total Score: 9 10/15/19 24 1:32 PM EST documented as of this encounter Care Teams Mixing Operator Relationship Specialty Start Date End Date Valerie Rios FNP [address] [place] [address] PCP - General Family Medicine 06/26/21 documented as of this encounter
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
--- OUTSIDE RECORDS SUMMARY | 2025-09-19 09:40 | XMS_ITS | Encounter Summary ---
Author Organization [email or web address] Address [address] [place] [address] [address] [address] Care Team Providers Care Integrity Director Name Role Phone Blanca Valerie RN ENT Primary Care Provider [phone] Reason for Visit * Reason Onset Date Comments Med Refill 03/24/2023 Encounter Details Date Type Department Care Team (Late st Contact Info) Description 03/24/2023 Refill [facility] [address] [place] [phone] Fransico Pradhan FNP Hypersomnia Social History Tobacco Use Types Packs/Day Years Used Date Smoking Tobacco: Former Cigarettes Smokeless Tobacco: Never Alcohol Use Standard Drinks/Week Comments Never 0 (1 standard drink = 0.6 oz pur e alcohol) PHQ-2 Answer Date Recorded Patient Health Questionnaire-2 Score 4 02/19/2023 Comments Unknown Sex and Gender Information Value [...] Description 09/20/2025 11:15 AM EST Office Visit [facility] [address] [place] [address] [phone] Valerie Rios FNP [address] [place] [phone] documented as of this encounter Visit Diagnoses Diagnosis Hypersomnia Hypersomnia, unspecified documented in this encounter Additional Health Concerns Assessment Noted Time PHQ-9 Depression Total Score: 11 023 9:03 AM EDT documented as of this encounter Care Teams Integrity Director Relationship Specialty Start Date End Date Valerie Rios FNP [address] [place] [phone] PCP - General Family Medicine 06/26/21 documented as of this encounter
--- OUTSIDE RECORDS SUMMARY | 2025-09-19 09:40 | XMS_ITS | Continuity of Care Document ---
Author Organization [facility] - [facility], [facility] Address [address] [place] [address] Care Team Providers Care Security Checker Name Role Phone JULITO WOO Primary Care [...] The prescription will be sent to the [facility]. I educated the patient on the use [...] fungal debris. [email or web address] Not available 07/14/2025 14:28:28 Plan of Treatment Reminders Order Date Submit Date Provider Last Modified By Organization Details Last Modified Time Details Appointments Establish ed 15 2024 09:15MALCOLM ORTIZ Not available Not available Not available Lab None recorded. Referral None recorded. Procedures None recorded. Surgeries None recorded. Imaging None recorded. Medication Orders clotrimaz ole 1 % topical solution 2024 025 [id number], [address], [place], [phone], 07/14/2025 14:26:56 Patient TargetsNo targets recorded. Patient Instructions Encounter Date Encounter Id Patient Instructions Last Modified By Organization Details Last Modified Time 07/14/2025 [id number] - Use clotrimazole solution, five drops three [...] the note. [email or web address] Not available 07/14/2025 14:27:34 Reason for Referral None Reported. Problems Name Problem SNOMED Code Status Onset Date Resolution Date Notes Provider Name and Address Organization Details Recorded Time Impacted cerumen in right ear 31601853461 62785 Active 2014 Impacted cerumen, right ear; Note: Date Diagnosed : 05/03/2015 10:44 AM (H61.21) Not Available [facility] 4 03:11:42 Dizziness and giddiness 314385377 Active 2014 Dizziness ; Note: Date Diagnosed : 05/03/2015 10:15 AM (780.4) Dizzine ss and giddiness ; Note: Date Diagnosed : 05/03/2015 10:44 AM (R42) [mapped from ICD9 code: 780.4] Not Available [facility] 4 03:11:43 Abnormal auditory perceptio n 12205795 Active 2014 Abnormal auditory perceptio n, unspecifi ed; Note: Date Diagnosed : 05/03/2015 10:44 AM (388.40) Other abnormal auditory perceptio ns, right ear; Note: Date Diagnosed : 05/03/2015 10:44 AM (H93.291) [mapped from ICD9 code: 388.40] Not Available [facility] 4 03:11:42 Impacted cerumen 98270289 Active 2014 Impacted cerumen; Note: Date Diagnosed : 05/03/2015 10:44 AM (380.4) Not Available [facility] hospital 4 03:11:42 Bilateral tinnitus 30167440695 02 Active 2016 Tinnitus, bilateral ; Note: Date Diagnosed : 12/02/2016 2:06 PM (H93.13) Not Available [facility] hospital 4 03:11:43 Migraine without aura, not refractor y 637451940 Active 2016 Migraine without aura, not intractab le, without status migrainos us; Note: Date Diagnosed : 02/09/2017 3:15 PM (G43.009) Not Available [facility] hospital 4 03:11:43 Bilateral temporoma ndibular joint pain 10956040745 727702 Active 2016 Arthralgi a of bilateral temporoma ndibular joint; Note: Date Diagnosed : 02/09/2017 3:16 PM (M26.623) Not Available [facility] hospital 4 03:11:43 Itching of skin 366745049 Active 2020 Pruritus, unspecifi ed; Note: Date Diagnosed : 01/31/2021 12:24 PM (L29.9) Not Available Critical [facility] hospital 4 03:11:42 Infective otitis externa of right ear 34992704070 84649 Active 2022 Other infective otitis externa, right ear; Note: Date Diagnosed : 01/07/2023 11:00 AM (H60.391) Not Available Critical access hospital 4 03:11:43 Otomycosi s 06958133 Active 2024 MELANIE ROY MD [address] [place] [address], [place], [address] , [facility] - [facility] 5 14:25:55 Problem Notes None recorded. [...] aerosol inhaler 2014 active Medicati on ID: 52227 Br and Name: Proventi l HFA Send Method: E-Prescr ibed Sub s Allowed: subs OK Medic ationGen ericName : Proventi l HFA Not Available Not Available Not Available furosemid e 20 mg tablet 2017 active Medicati on ID: [id number] D uration Value: 88 Brand Name: furosemi [...] xtend release 2017 active Medicati on ID: [id number] D uration Value: 30 Brand Name: dextroam [...] elayed release 2017 active Medicati on ID: [id number] D uration Value: 30 Brand Name: duloxeti [...] as directed 2023 active Medicati on ID: 149666 B rand Name: fluocino lone acetonid e [...] mg capsule 2014 active Medicati on ID: 47101 Br and Name: Fioricet Send Method: E-Prescr [...] Updated DateTime 07/14/2025 154.94 cm 31.2 kg/m2 78586.74 g [facility] 07/14/2025 14:14:22 Social History None recorded. Functional Status None recorded. Mental Status None recorded. Family History Nothing Reported. Medical History No medical history recorded. Gynecological HistoryNo gynecological history recorded. Obstetrics History GPAL:G 0 P 0 0 0 0 Past Encounters Encounter ID Performer Location Encounter Start Date Encounter Closed Date Diagnosis/Indication Diagnosis SNOMED-CT Code Diagnosis ICD10 Code Diagnosis IMO Codes Diagnosis Note [id number] MELANIE ROY MD [facility] [address] [address] 07/14/2025 13:47:51 07/14/2025 14:28:55 Otomycosis 31439204 B36.9 H62.40 [id number] Health Concerns Section Related Observation LastModified by Organization Detai ls LastModified Time None Recorded Concern Status LastModified by Organization Details LastModified Time None Recorded Payers Encounter Date Sequence Insurance Name Policy Number Policy Bobby Covered Member ID Bobby Member ID Guarantor Name 07/14/2025 2 [place] Dominique E Agront Anders [id number] Dominique E Agront 07/14/2025 1 [place] [employer] Dominique E Agront [id number] Dominique E Agront Notes Date Note Type Note Provider Name and Address Organization Details Recorded Time 07/14/2025 text/html itchy ears PV 12/29/23 Noel fungal OE, rx clotrimazole Dominique Carlita Agront is a 50-year-old female who presents for [...] fatigue syndrome, and hypersomnia. MELANIE ROY MD [address] [place] [address], [address], [facility] - [facility] 07/14/2025 14:28:31 OBGyn Episode No OBEpisode recorded.
--- OUTSIDE RECORDS SUMMARY | 2025-09-19 09:40 | XMS_ITS | Encounter Summary ---
Author Organization [employer] Address [address] [place] [address] [address] [address] Care Team Providers Care Visual Merchandising Manager Name Role Phone [place] [facility] Primary Care Provider [phone] Reason for Visit * Reason Onset Date Comments PA 12/29/2022 Encounter Details Date Type Department Care Team ([facility] st Contact Info) Description 12/29/2022 Telephone [facility] MEDICINE [address] [place], [place] [phone] [place] [facility] [address] [place] [address] PA Social History Tobacco Use Types Packs/Day Years [...] suspected to have Coronavirus/COVID-19? No / Unsure 12/30/2022 11:27 PM EDT documented as of this encounter Miscellaneous Notes * Telephone Encounter - Lupis Mcneil - 01/05/2023 2:45 PM EDT Tc from patient requesting the status of PA, regarding message below. * Telephone Encounter - Luz Hidalgo - 12/30/2022 9:04 AM EDT Please advise on PA request, thank you * Telephone Encounter - Beba Frederick - 12/29/2022 3:46 PM EDT Tc from pt stating that pharmacy informed that tretinoin microspheres (Retin-A Micro) 0.1 % gel needs a PA Please contact pt at [phone] documented in this encounter Plan of Treatment Upcoming Encounters Date Type Department Care Team (Late st Contact Info) Description 09/20/2025 11:15 AM EST Office Visit [facility] MEDICINE [address] [place] [address] [place] [facility] [address] [place] [address] documented as of this encounter Visit Diagnoses Not on filedocumented in this encounter Additional Health Concerns Assessment Noted Time PHQ-9 Depression Total Score: 8 10/07/19 23 1:26 PM EST documented as of this encounter Care Teams Visual Merchandising Manager Relationship Specialty Start Date End Date Valerie Rios FNP [address] [place] [address] PCP - General Family Medicine 06/26/21 documented as of this encounter
--- OUTSIDE RECORDS SUMMARY | 2025-09-19 09:40 | XMS_ITS | Encounter Summary ---
Author Organization [employer] Address [address] [facility] 7 [place] [address] Care Team Providers Care Factory Assembler Name Role Phone [place] [facility] Primary Care Provider [phone] Reason for Visit * Reason Onset Date Comments Med Refill 12/15/2023 Encounter Details Date Type Department Care Team ([facility] st Contact Info) Description 12/15/2023 Refill [facility] [address] [place] [address] [facility] [address] [place] [address] Social History Tobacco Use Types Packs/Day Years [...] Description 09/20/2025 11:15 AM EST Office Visit [facility] MEDICINE [address] [place] [address] Valerie Rios FNP [address] [place] [address] documented as of this encounter Visit Diagnoses Not on filedocumented in this encounter Additional Health Concerns Assessment Noted Time PHQ-9 Depression Total Score: 9 12/08/19 24 10:22 AM EDT documented as of this encounter Care Teams Factory Assembler Relationship Specialty Start Date End Date Valerie Rios FNP [address] [place] [address] PCP - General Family Medicine 06/26/21 documented as of this encounter
--- OUTSIDE RECORDS SUMMARY | 2025-09-19 09:40 | XMS_ITS | Encounter Summary ---
Author Organization [employer] Address [address] [facility] 7 [place] [address] Care Team Providers Care Feed Handler Name Role Phone [place] [facility] Primary Care Provider [phone] Reason for Visit * Reason Comments Med Refill Encounter Details Date Type Department Care Team ([facility] Contact Info) Description 05/08/2025 Refill [facility] MEDICINE [address] [place], [place] [phone] [place] [facility] [address] [place] [address] Severe obstructive sleep apnea in adult Social History Tobacco Use Types Packs/Day Years [...] Description 09/20/2025 11:15 AM EST Office Visit [facility] MEDICINE [address] [place] [address] Valerie Rios FNP [address] [place] [address] documented as of this encounter Visit Diagnoses Diagnosis Severe obstructive sleep apnea in adult documented in this encounter Additional Health Concerns Assessment Noted Time PHQ-9 Depression Total Score: 14 025 3:03 PM EDT documented as of this encounter Care Teams Feed Handler Relationship Specialty Start Date End Date Valerie Rios FNP [address] [place] [address] PCP - General Family Medicine 06/26/21 documented as of this encounter
--- OUTSIDE RECORDS SUMMARY | 2025-09-19 09:40 | XMS_ITS | Clinical Summary ---
Author Organization [address] Address [address] [place] [address] Phone Care Team Providers Care Cyber Threat Analyst Name Role Phone Fransico Pradhan NP Primary Care Provider [phone] Surgical History Surgery Date Site/Laterality Comments OTHER SURGICAL HISTORY 03/2017 PROCEDURE: HISTORY OTHER; COMMENT: gastric sleeve OTHER SURGICAL HISTORY 09/15/2011 Left PROCEDURE: HISTORY OTHER; COMMENT: US guided breast biopsy, negative OTHER SURGICAL HISTORY 2015 PROCEDURE: HISTORY OTHER; COMMENT: Pelvic prolapse surgery w/ bilateral salpingectomy COLONOSCOPY 2014 PROCEDURE: HISTORICAL COLONOSCOPY; COMMENT: precancerous polyp BELT ABDOMINOPLASTY 2000 PROCEDURE: HISTORICAL TUMMY TUCK APPENDECTOMY PROCEDURE: HISTORICAL APPENDECTOMY EYE SURGERY PROCEDURE: HISTORICAL EYE SURGERY; COMMENT: laser APPENDECTOMY PROCEDURE: TX APPENDECTOMY Medical History Medical History Date Comments Anxiety 03/07/2019 DX:Anxiety Asthma DX:Asthma Depression DX:Depression Facial rhytids 06/04/2018 DX:Facial rhytid s GERD (gastroesophageal reflux disease) 03/07/2019 DX:GERD (gastroesophageal reflux disease) History of weight loss surgery 09/28/2016 D X:History of weight loss surgery; COMMENT: gastric sleeve Labial cyst 12/06/2018 DX:Labial cyst 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 Migraines 03/07/2019 DX:Migraines Ptosis of breast 05/14/2018 DX:Ptosis of br east Skin laxity 05/14/2018 DX:Skin laxity 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 Tubular adenoma of colon 03/07/2019 DX:Tubu lar adenoma of colon; COMMENT: CN 2014 Hyperlipidemia DX:Hyperlipidemi a Family History Medical History Relation Name Comments Coronary artery disease Father Ovarian cancer Father's side cousin [place] cancer Maternal Grandfather Breast cancer Maternal Grandmother Thyroid disease Mother DM, CAD, depression/anxiety Uterine cancer Paternal Grandmother Hypertension Sister 1 DM, depression/ anxiety Ovarian cancer Sister 2 paternal half Hypertension Son DM Relation Name Status Comments Father Father's side cousin Alive Maternal Grandfather Maternal Grandmother Mother Paternal Grandmother Sister 1 Sister 2 paternal half Alive Son Social History Tobacco Use Types Packs/Day Years [...] on file Sexual Orientation Not on file Last Filed Vital Signs Vital Sign Reading Time Taken Comments Blood Pressure - - Pulse - - Temperature - - Respiratory Rate - - Oxygen Saturation - - Inhaled Oxygen Concentration - - Weight 93 kg (205 lb) 06/30/2024 9:30 AM EDT Height 154.9 cm (5' 1 ) 06/30/2024 9:30 AM EDT Body Mass Index 38.73 06/30/2024 9:30 AM EDT Plan of Treatment Health Maintenance Due Date Last Done Comments Breast Cancer Screening 1976 Colorectal Cancer Screening: Colonoscopy 1976 DTaP,Tdap,and Td Vaccines (1 - Tdap) 01/10/1995 Hepatitis B Vaccines (1 of 3 - 19+ 3-dose series) 01/10/1995 Pneumococcal Vaccine: Pediat rics (0 to 5 Years) and At-Risk Patients (6 to 49 Years) (1 of 2 - PCV) 01/10/1995 Cervical Cancer Screening: P ap Smear 01/10/1997 HIV Screening 08/25/2022 Hepatitis C Screening 08/25/2022 Medicare Annual Wellness Visit 08/25/2022 Social Influencers of Health Screening 08/25/2022 Depression Screening 09/28/2024 COVID-19 Vaccine ( - 2024-2 6 season) 2025 Influenza Vaccine (#1) 2025 RSV Immunization Adult Patie nts (1 - 1-dose 75+ series) 01/10/2051 HIB Vaccines Aged Out No longer eligi [...] on patient's age to complete this topic MMR Vaccines Aged Out No longer eligi ble based on patient's age to complete this topic Meningococcal ACWY Vaccine Aged Out N o longer eligible based on patient's age to complete this topic Meningococcal B Vaccine Aged Out No l onger eligible based on patient's age to complete this topic RSV Immunization Patients Un thania 20 months Aged Out No longer eligible b ased on patient's age to complete this topic Varicella Vaccines Aged Out No longer eligible based on patient's age to complete this topic Insurance MEDICAID - [place] MEDICARE Care Teams Cyber Threat Analyst Relationship Specialty Start Date End Date Fransico Pradhan NP [address] [place] [address] PCP - General Internal Medicine 03/13/21
--- OUTSIDE RECORDS SUMMARY | 2025-09-19 09:40 | XMS_ITS | Encounter Summary ---
Author Organization [employer] Address 75 [facility] 7 [place] [address] Care Team Providers Care Cash Application Representative Name Role Phone [place] [facility] Primary Care Provider [phone] Reason for Visit * Reason Comments Med Refill Encounter Details Date Type Department Care Team ([facility] Contact Info) Description 12/30/2024 Refill [facility] MEDICINE [address] [place], [place] [phone] [place] [facility] [address] [place] [address] Social History Tobacco Use Types Packs/Day Years [...] Recorded Patient Health Questionnaire-2 Score 0 04/05/2024 Internet Access Answer Date Recorded Internet Access Q1 Yes 12/27/2024 Internet Access Q2 Not on file 12/27/2024 Comments Unknown Sex and Gender Information Value [...] Description 09/20/2025 11:15 AM EST Office Visit [facility] MEDICINE [address] [place] [address] Valerie Rios FNP [address] [place] [address] documented as of this encounter Visit Diagnoses Not on filedocumented in this encounter Additional Health Concerns Assessment Noted Time PHQ-9 Depression Total Score: 4 04/05/20 24 11:22 AM EDT documented as of this encounter Care Teams Cash Application Representative Relationship Specialty Start Date End Date Valerie Rios FNP [address] [place] [address] PCP - General Family Medicine 06/26/21 documented as of this encounter
--- OUTSIDE RECORDS SUMMARY | 2025-09-19 09:40 | XMS_ITS | Encounter Summary ---
Author Organization [employer] Address 75 [facility] 7t [place] [address] Care Team Providers Care Publication Editor Name Role Phone Valerie Rios SENIOR INFORMATION SECURITY ENGINEER Primary Care Provider [phone] Reason for Visit * Reason Comments Med Refill Encounter Details Date Type Department Care Team ([facility] Contact Info) Description 09/11/2023 Refill [facility] [address] [place] [address] Ruth Villatoro MD [address] [place] [address] Social History Tobacco Use Types Packs/Day Years [...] 11:15 AM EST Office Visit [facility] MEDICINE [address] [place] [address] Valerie Rios FNP [address] [place] [address] documented as of this encounter Visit Diagnoses Not on filedocumented in this encounter Additional Health Concerns Assessment Noted Time PHQ-9 Depression Total Score: 0 06/15/20 23 9:47 AM EDT documented as of this encounter Care Teams Publication Editor Relationship Specialty Start Date End Date Valerie Rios FNP [address] [place] [address] PCP - General Family Medicine 06/26/21 documented as of this encounter
--- OUTSIDE RECORDS SUMMARY | 2025-09-19 09:40 | XMS_ITS | Encounter Summary ---
Author Organization [employer] Address [address] [facility] [address] [place] [address] Care Team Providers Care Chocolate Refining Roller Name Role Phone [place] [facility] Primary Care Provider [phone] Reason for Visit * Reason Onset Date Comments Nurse Triage 09/02/2023 Encounter Details Date Type Department Care Team ([facility] st Contact Info) Description 09/02/2023 Telephone [facility] MEDICINE [address] [place], [place] [phone] [place] [facility] [address] [place] [address] Nurse Triage Social History Tobacco Use Types Packs/Day Years [...] encounter Miscellaneous Notes * Telephone Encounter - Tarah Simmons RN - 09/07/2023 12:43 PM EST Triage call regarding Pt portal message below. Pt reports breathing is fine but has some wheezing when exhales especially at night time. Pt reports a cough which produces greenish sputum which comes and goes. Pt is neg for fever, nasal congestion or other TABITHA symptoms and isn't using proventil inhaler because breathing is fine. Pt is going away to [place] Thursday and would like provider to see [facility] Pt goes. No apts available in office. Pt is advised to come to [facility] today or tomorrow. Hours 830am- 800pm. Pt agrees with disposition. Protocol Used: Wheezing - Other Than Asthma Protocol-Based Disposition: See in Office or Video Visit within 3 Days Video visit not offered Positive Triage Question: * Chronic mild wheezing * All higher-acuity triage questions were negative Care Advice Discussed: * Reassurance and Education - Mild Wheezing * Warm Fluids for Coughing Spasms * Humidifier * Reasons To Call Back - Breathing becomes difficult, tight or loud - Wheezing becomes worse Appointment Request (Newest Message First) Melissa Fontana routed conversation to Otto Triage Nurse 48 minutes ago (11:53 AM) Appointment Request From: Dominique Mcnamara With Provider: [facility] [[facility]] Preferred Date Range: 09/08/2023 - 09/11/2023 Preferred Times: Any Time Reason for visit: New Problem Visit Comments: Asthma. I have been sick for a couple of days. My breathing is fine, but feel wheezing when exhaling. * Telephone Encounter - Tarah Simmons RN - 09/02/2023 1:13 PM EST Triage call Pt reports right eye lid swollen . Pt reports 08/31/23 stye was starting on right upper eye lid. Pt continued to monitor, did try warm compress. Today Pt reports eye lid is red, swollen, painful, sticky drainage. Pt is advised to come to [facility] for Provider to see and Pt agrees with disposition . Hours given for [facility]. Protocol Used: Eyelid Swelling (Adult) Protocol-Based Disposition: See in Office or Video Visit Today or Tomorrow Video visit not offered Positive Triage Question: * Patient wants to be seen * All higher-acuity triage questions were negative Care Advice Discussed: * Reasons To Call Back - Swelling lasts over 3 days - Swelling becomes red or painful to the touch - You become worse * Telephone Encounter - Verónica Ann - 09/02/2023 12:49 PM EST Symptom: Eye Swelling Outcome: Schedule an urgent appointment (within 4 hours) or talk to a nurse or provider soon Reason: Eyelid is red and swollen The caller accepted this outcome documented in this encounter Plan of Treatment Upcoming Encounters Date Type Department Care Team (Late st Contact Info) Description 09/20/2025 11:15 AM EST Office Visit [facility] MEDICINE [address] [place] [address] Valerie Rios FNP [address] [place] [address] documented as of this encounter Visit Diagnoses Not on filedocumented in this encounter Additional Health Concerns Assessment Noted Time PHQ-9 Depression Total Score: 0 06/15/20 9:47 AM EDT documented as of this encounter Care Teams Chocolate Refining Roller Relationship Specialty Start Date End Date Valerie Rios FNP [address] [place] [address] PCP - General Family Medicine 06/26/21 documented as of this encounter
--- OUTSIDE RECORDS SUMMARY | 2025-09-19 09:40 | XMS_ITS | Encounter Summary ---
Author Organization [employer] Address [address] [facility] [address] [place] [address] Care Team Providers Care Chalk Tester Name Role Phone [place] [facility] Primary Care Provider [phone] Reason for Visit * Reason Onset Date Comments Call Back Request 12/08/2023 Encounter Details Date Type Department Care Team ([facility] Contact Info) Description 12/08/2023 Telephone [facility] MEDICINE [address] [place], [place] [phone] [place] [facility] [address] [place] [address] Call Back Request Social History Tobacco Use Types Packs/Day Years [...] enough money to get more: Never True 10/ Transportation Answer Date Recorded In the past [...] encounter Miscellaneous Notes * Telephone Encounter - Brianda Rodney - 12/08/2023 11:40 AM EDT Tc from jordyn with [facility] requesting additional information on PA for Wellbutrin XL 300 MG 24 hrtablet. Please contact jordyn at [phone] documented in this encounter Plan of Treatment Upcoming Encounters Date Type Department Care Team (Late st Contact Info) Description 09/20/2025 11:15 AM EST Office Visit [facility] MEDICINE [address] [place] [address] Valerie Rios FNP [address] [place] [address] documented as of this encounter Visit Diagnoses Not on filedocumented in this encounter Additional Health Concerns Assessment Noted Time PHQ-9 Depression Total Score: 9 12/08/19 24 10:22 AM EDT documented as of this encounter Care Teams Chalk Tester Relationship Specialty Start Date End Date Valerie Rios FNP [address] [place] [address] PCP - General Family Medicine 06/26/21 documented as of this encounter
--- OUTSIDE RECORDS SUMMARY | 2025-09-19 09:40 | XMS_ITS | Encounter Summary ---
Author Organization [employer] Address [address] [facility] [address] [place] [address] Care Team Providers Care Executive Vice President Business Development Name Role Phone Valerie Rios [employer]CHANT Primary Care Provider [phone] Encounter Details Date Type Department Care Team (Late st Contact Info) Description 10/27/2024 Orders Only [facility] [address] [place] [address] Provider, MD Corazon Social History Tobacco Use [...] 09/20/2025 11:15 AM EST Office Visit [facility] MEDICINE [address] [place] [address] Valerie Rios FNP [address] [place] [address] documented as of this encounter Procedures Procedure Name Priority Date/Time Associated Diagnosis Comments CT ABDOMEN PELVIS W AND WO CONTRAST Routine 10/24/2024 9:35 AM EST documented in this encounter Results * CT Abdomen Pelvis w/ and w/o Contrast (10/24/2024 9:35 AM EST) Anatomical Region Laterality Modality Body, Pelvis, Abdomen Computed T omography us Historical Provider MD BADILLO CT PROCEDURES Final R esult documented in this encounter Visit Diagnoses Not on filedocumented in this encounter Additional Health Concerns Assessment Noted Time PHQ-9 Depression Total Score: 4 04/05/20 24 11:22 AM EDT documented as of this encounter Care Teams Executive Vice President Business Development Relationship Specialty Start Date End Date Valerie Rios FNP [address] [place] [id number] PCP - General Family Medicine 06/26/21 documented as of this encounter
--- OUTSIDE RECORDS SUMMARY | 2025-09-19 09:40 | XMS_ITS | Encounter Summary ---
Author Organization [employer] Address [address] [facility] [address] [place] [address] Care Team Providers Care Master Control Operator Name Role Phone Valerie Rios SHAKER PLATE OPERATOR Primary Care Provider [phone] Reason for Visit * Reason Comments Med Refill Encounter Details Date Type Department Care Team ([facility] st Contact Info) Description 06/07/2024 Refill [facility] [address] [place] [address] Fransico Pradhan FNP Social History Tobacco Use Types Packs/Day Years [...] 11:15 AM EST Office Visit [facility] [address] [place] [address] Valerie Rios FNP [address] [place] [address] documented as of this encounter Visit Diagnoses Not on filedocumented in this encounter Additional Health Concerns Assessment Noted Time PHQ-9 Depression Total Score: 4 04/05/20 24 11:22 AM EDT documented as of this encounter Care Teams Master Control Operator Relationship Specialty Start Date End Date Valerie Rios FNP [address] [place] [address] PCP - General Family Medicine 06/26/21 documented as of this encounter
--- OUTSIDE RECORDS SUMMARY | 2025-09-19 09:40 | XMS_ITS | Encounter Summary ---
Author Organization [employer] Address [address] [facility] [address], [place] [address] Care Team Providers Care Credit Collection Associate Name Role Phone Valerie Rios [facility] Primary Care Provider [phone] Encounter Details Date Type Department Care Team (Late st Contact Info) Description 10/10/2022 [facility] Information Management [address] [place], [place] [id number] Valerie Rios [facility] [address] [place] [address] Social History Tobacco Use Types Packs/Day Years Used Date Smoking Tobacco: Never Assessed PHQ-2 Answer Date Recorded Patient Health Questionnaire-2 Score 3 10/07/2022 Comments Unknown Sex and Gender Information Value [...] Description 09/20/2025 11:15 AM EST Office Visit [facility] MEDICINE [address] [place], [place] [phone] Valerie Rios [facility] [address] [place] [address] documented as of this encounter Visit Diagnoses Not on filedocumented in this encounter Additional Health Concerns Assessment Noted Time PHQ-9 Depression Total Score: 8 10/07/19 23 1:26 PM EST documented as of this encounter Care Teams Credit Collection Associate Relationship Specialty Start Date End Date Blanca PAMELA Padilla [address] [place] [id number] PCP - General Family Medicine 06/26/21 documented as of this encounter
== END 2025-09-19 09:04 | disposition home or self-care (01) ==
LOC: HO.MAMMO 09:03
PROVIDERS: PCP Registered Nurse; Visit Provider Registered Nurse
DX: Z12.31 Encounter for screening mammogram for malignant neoplasm of breast (principal)
CPT/HCPCS: 77063; 77067